=== PATIENT | male | born 1975 | race Caucasian/White ===

== ENCOUNTER → 2019-06-22 | Outpatient (CLI) | payer BC ==
--- NOTE | 2019-06-22 22:48 | MR ---
EXAMINATION TYPE: MR knee LT wo con DATE OF EXAM: 06/22/2019 COMPARISON: Outside left knee x-ray June 10, 2019. HISTORY: Left knee pain due to injury, Hx of past lt knee injury x 20 years ago TECHNIQUE: Multiplanar, multisequence images of the knee is performed without IV contrast. FINDINGS: MEDIAL MENISCUS: Anterior and posterior horns are intact without tear. LATERAL MENISCUS: Anterior and posterior horns are intact without tear. CRUCIATE LIGAMENTS: The anterior cruciate ligament is intact and unremarkable. Posterior cruciate lig ament is thickened with increased signal. COLLATERAL LIGAMENTS: The medial collateral ligament and lateral collateral ligament complex are inta ct and unremarkable. EXTENSOR MECHANISM: Visualized quadriceps and patellar tendons are intact. EFFUSION: Small to moderate size suprapatellar joint effusion. POPLITEAL CYST: No popliteal/bergeron cyst. TRICOMPARTMENT SPACES: Mild narrowing medial tibiofemoral and patellofemoral compartments. Minimal sp urring. CARTILAGE: Tricompartment articular cartilage fairly well preserved. BONE MARROW SIGNAL: No focal abnormal marrow signal is appreciated. OTHER: No additional significant abnormality is appreciated. IMPRESSION: 1. No meniscal tear is seen. 2. Injury to the PCL without full-thickness tear. 3. Mild tricompartment degenerative changes as detailed above. 4. Small to borderline moderate sized suprapatellar joint effusion.
== END | disposition home or self-care (01) ==
LOC: RADMRIMAIN 19:26
PROVIDERS: ATTEND Orthopaedic Surgery
DX: M17.12 Unilateral primary osteoarthritis, left knee (principal); S89.92XA Unspecified injury of left lower leg, initial encounter

== ENCOUNTER 2019-08-18 14:12 | Day surgery (SDC) | payer BC ==
[2019-08-13 15:04] VITALS: BMI 36.0
--- NOTE | 2019-08-17 09:48 | HP ---
HISTORY AND PHYSICAL CHIEF COMPLAINT: Left knee pain. 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 He continues to have anterior and medial soreness along with swelling and stiffness. He has increasing symptoms with squatting. He has tried an injection and medications with only partial temporary relief. He does have a history of previous left knee arthroscopy in 1997. PAST MEDICAL HISTORY: Significant for hypertension and renal stones. PAST SURGICAL HISTORY: Significant for left knee arthroscopy, lithotripsy and left hand surgery. CURRENT MEDICATIONS: Aleve. ALLERGIES: He denies drug allergies. FAMILY HISTORY: Significant for cancer and heart disease. SOCIAL HISTORY: Significant for social alcohol use. REVIEW OF SYSTEMS: Sixteen-point review of systems otherwise reviewed and is noncontributory. PHYSICAL EXAMINATION: On examination, the patient is approximately 6 feet tall, 269 pounds of endomorphic habitus. HEENT exam is nonfocal. Neck is supple. He has painless passive motion of left hip. Straight leg raise is negative. Active motion left knee -10 to 130 degrees of flexion. He has a mild effusion. He is tender about the medial and lateral joint line. Collaterals are stable Rachid's negative, Soco's elicits medial pain. His distal neurovascular exam appears intact in the left lower extremity. MRI report left knee shows irregularity involving the cartilage on the distal medial femoral condyle. There is also a question of a PCL sprain. IMPRESSION: 1. Internal derangement left knee with possible PCL sprain and medial femoral condyle chondral injury. 2. Obesity. RECOMMENDATIONS: I talked to the patient at length regarding his condition along with treatment options. At this point, he is having persistent pain and mechanical symptoms that limit him despite conservative measures. After thorough discussion, he opts to proceed with surgery. We will plan to proceed with left knee arthroscopy with possible medial femoral chondrectomy and possible microfracture in addition to possible PCL debridement. Risks and benefits were discussed at length in layman's terms. We will likely perform that as an outpatient procedure. MMODL / IJN: [id number] /
[~2019-08-18 14:12] MED LIST: DEXAMETHASONE SOD PHOSPHATE 10 MG/ML 1 ML VIAL IV ONE; LACTATED RINGERS 1,000 ML IV SCH; LIDOCAINE 1% 20 ML VIAL (10MG/ML) FOR IV START INTRADERMA PRN; ONDANSETRON 4 MG/2 ML VIAL IVP ONE; SCOPOLAMINE 1.5MG/72HR PATCH TRANSDERM ONE; ceFAZolin 3 GM in SODIUM CHLORIDE 0.9% 100 ML IVPB ONE
[2019-08-18] MEDS ORDERED: PROPOFOL 10 MG/ML 20 ML VIAL IV ONE (16:10)
[2019-08-18] MEDS ORDERED: SUCCINYLCHOLINE CHLORIDE VIAL 200 MG/10 ML VIAL IV ONE (16:10)
[2019-08-18] MEDS ORDERED: MIDAZOLAM 2 MG/2 ML VIAL ONE (16:10)
[2019-08-18] MEDS ORDERED: fentaNYL (PF) 50 MCG/ML 2 ML AMP ONE (16:10)
[2019-08-18] MEDS ORDERED: LACTATED RINGERS 1,000 ML IV ONE (16:41)
--- NOTE | 2019-08-18 17:05 | P.OP ---
Date of Procedure: 08/18/19 Preoperative Diagnosis: Left knee internal derangement Postoperative Diagnosis: Grade 3 chondral injury distal medial femoral condyle Procedure(s) Performed: Left knee arthroscopic medial femoral chondrectomy with microfracture medial femoral condyle Anesthesia: MADI Surgeon: Reji Babin Estimated Blood Loss (ml): 10 Pathology: none sent Condition: stable Disposition: PACU Indications for Procedure: The patient's a 43-year-old male who presents with persistent/progressive left knee pain and mechanical symptoms despite conservative measures. A discussion of the risks and benefits of operative intervention versus continued conservative measures was made with patient. He opted to proceed with surgery. Operative risks to include infection, neurovascular injury, development of blood clots, possible incomplete resolution of symptoms, possible worsening symptoms and need for subsequent procedures was discussed. Informed consent was obtained. Operative Findings: As below Description of Procedure: The patient was brought to the operating room, and after induction of general anesthesia examined the left knee. Collaterals were stable, Rachid was negative, and posterior drawer was negative. The left lower extremity was prepped and draped in a normal fashion. A lateral portal was made through a 5 mm vertical skin incision lateral to the patella tendon above the joint line. Diagnostic arthroscopy was performed. On inspection of the medial compartment, a grade 3 chondral injury was noted involving the central distal portion medial femoral condyle. There was a loose chondral flap to be back to stable base with a motorized shaver. Microfracture was performed utilizing a power pik reaching the subchondral surface down to the bone marrow elements. The medial meniscus was stable and intact.. On inspection of the notch, the anterior cruciate ligament appeared to be intact. The posterior cruciate ligament appeared to be intact. On inspection of the lateral compartment no significant meniscal or cartilage pathology was noted. On inspection of the patellofemoral articulation grade 2 chondral changes were noted diffusely.. The gutters were clear debris. The knee was then thoroughly irrigated. The portals were closed with Steri-Strips. A sterile dressing was applied in addition to a compression stocking. The patient was awoken from general anesthesia and transferred to recovery room in good condition. Blood loss was estimated at 10 mL. No complications were incurred.
[2019-08-18] MEDS ORDERED: HYDROmorphone 1 MG/ML 1 ML SYRINGE IVP ONE ×2 (17:25→17:43)
[2019-08-18 17:29] VITALS: TEMP 97.1
[2019-08-18 18:10] VITALS: RESP 18
[2019-08-18 18:14] VITALS: BP 124/78; PULSE 84
== END 2019-08-18 18:30 | disposition home or self-care (01) ==
LOC: OR 14:12
PROVIDERS: ATTEND Orthopaedic Surgery
DX: M94.8X6 Other specified disorders of cartilage, lower leg (principal); M23.92 Unspecified internal derangement of left knee; I10 Essential (primary) hypertension; E66.9 Obesity, unspecified; Z98.890 Other specified postprocedural states; Z87.442 Personal history of urinary calculi; Z86.69 Personal history of other diseases of the nervous system and sense organs; Z79.1 Long term (current) use of non-steroidal anti-inflammatories (NSAID); Z82.49 Family history of ischemic heart disease and other diseases of the circulatory system; Z68.34 Body mass index [BMI] 34.0-34.9, adult
CPT/HCPCS: 29879; J2250; J0330; J1100; J0690; J2405; J3010; J1170; J2704

== ENCOUNTER → 2020-10-10 | Outpatient (CLI) | payer BC ==
--- NOTE | 2020-10-11 07:20 | CT ---
EXAMINATION TYPE: CT chest wo con DATE OF EXAM: 10/10/2020 COMPARISON: None HISTORY: Family history of aortic aneurysm. Pt has no complaints at time of scan. CT DLP: 556.[address] of the chest was performed with lung and mediastinal window settings submitted. The la ck of contrast limits evaluation of the vascular, mediastinal and parenchymal structures including th e upper abdomen. LUNGS: The lungs are clear and free of infiltrate. No atelectasis. No pulmonary nodule or mass is de tected. No pleural effusion. No CT evidence of interstitial lung disease. MEDIASTINUM/NGUYEN: Thoracic aorta is of normal caliber with limited evaluation given lack of contrast . The heart is not enlarged. No evidence for mediastinal mass. No lymph nodes greater than 1cm. UPPER ABDOMEN: No significant abnormality is seen. OTHER: No significant other abnormality. IMPRESSION: 1. No distinct abnormality appreciated.
== END | disposition home or self-care (01) ==
LOC: RADCTMAIN 17:17
PROVIDERS: ATTEND Family Medicine
DX: Z13.6 Encounter for screening for cardiovascular disorders (principal); Z82.49 Family history of ischemic heart disease and other diseases of the circulatory system
CPT/HCPCS: 71250

== ENCOUNTER 2021-02-13 07:12 | Inpatient (IN) | payer BC ==
[2021-02-13] MEDS ORDERED: SODIUM CHLORIDE 0.9% 1,000 ML IV STA (07:35)
--- NOTE | 2021-02-13 07:43 | ED ---
General Adult HPI - General Chief complaint: Fever Stated complaint: Fever Time Seen by Provider: 02/13/21 07:23 Source: patient, RN notes reviewed, old records reviewed Mode of arrival: ambulatory Limitations: no limitations - History of Present Illness Initial comments: 45 yo male presenting for evaluation of fever. Fever has been present for the past 3 days. He did have coronavirus swab on Saturday which was 3 days ago. He had fever this weekend up to 104. He has no cough or URI symptoms. No sore throat. No dyspnea. No chest pain. No abdominal pain. He reports bilateral great toe pain and bilateral knee pain. He denies any injury. He denies previous radical history. - Related Data Home Medications Medication Instructions Recorded Confirmed Acetaminophen Tab [Tylenol Tab] 500 mg PO Q6HR PRN 02/13/21 02/13/21 Allergies Allergy/AdvReac Type Severity Reaction Status Date / Time No Known Allergies Allergy Verified 02/13/21 08:39 Review of Systems ROS Statement: Those systems with pertinent positive or pertinent negative responses have been documented in the HPI. ROS Other: All systems not noted in ROS Statement are negative. Past Medical History Past Medical History: No Reported History Additional Past Medical History / Comment(s): hx of bells palsey History of Any Multi-Drug Resistant Organisms: None Reported Past Surgical History: Orthopedic Surgery Additional Past Surgical History / Comment(s): L wrist Past Psychological History: No Psychological Hx Reported Smoking Status: Never smoker Past Alcohol Use History: Occasional Past Drug Use History: None Reported General Exam Limitations: no limitations General appearance: alert, in no apparent distress Head exam: Present: atraumatic, normocephalic Eye exam: Present: normal appearance, PERRL ENT exam: Present: normal oropharynx, mucous membranes dry Neck exam: Present: normal inspection. Absent: tenderness, meningismus Respiratory exam: Present: normal lung sounds bilaterally. Absent: respiratory distress, wheezes Cardiovascular Exam: Present: regular rate, normal rhythm GI/Abdominal exam: Present: soft. Absent: distended, tenderness Extremities exam: Present: normal inspection, full ROM (Full range of motion of both knees. ), normal capillary refill, other (Bilateral toes exam, there is no erythema, no induration, no rash.) Neurological exam: Present: alert, oriented X3, CN II-XII intact, motor sensory deficit Psychiatric exam: Present: normal affect, normal mood Skin exam: Present: warm, dry, intact. Absent: rash Course Vital Signs 02/13/21 02/13/21 02/13/21 07:19 08:00 09:09 Temperature 99.5 F 101.9 F H 99.9 F H Pulse Rate 118 H 98 Respiratory 18 18 Rate Blood Pressure 133/74 118/67 O2 Sat by Pulse 96 95 Oximetry Medical Decision Making - Medical Decision Making 45-year-old male presenting with high fever, T-max at home was 104. His main complaint is eye lateral to pain and bilateral knee pain. He denies injury. Denies cough or URI symptoms. Denies abdominal pain. Denies any other in fectious symptoms. No recent travel. No rash. No history of exposure to tick bite. Patient states that each day over the past 3 days his fever has increased. No exposure to any known viral illness. Coronavirus testing is negative. CBC is negative for leukocytosis, stable hemoglobin, normal el ectrolytes, negative urinalysis. Chest x-ray performed which is negative. The source of his fever is not identified. Will be admitted to Dr. Corbin who is aware patient with ID on consult for fever of unknown origin. Blood cultures are pending. - Lab Data Result diagrams: 02/13/21 07:37 02/13/21 07:37 Lab Results 02/13/21 02/13/21 02/13/21 Range/Units 07:37 07:37 07:37 WBC 5.4 (3.8-10.6) k/uL RBC 4.97 (4.30-5.90) m/uL Hgb 15.9 (13.0-17.5) gm/dL Hct 45.5 (39.0-53.0) % MCV 91.5 (80.0-100.0) fL MCH 32.1 (25.0-35.0) pg MCHC 35.0 (31.0-37.0) g/dL RDW 12.8 (11.5-15.5) % Plt Count 167 (150-450) k/uL MPV 7.7 Neutrophils % 73 % Lymphocytes % 17 % Monocytes % 6 % Eosinophils % 3 % Basophils % 0 % Neutrophils # 4.0 (1.3-7.7) k/uL Lymphocytes # 0.9 L (1.0-4.8) k/uL Monocytes # 0.3 (0-1.0) k/uL Eosinophils # 0.1 (0-0.7) k/uL Basophils # 0.0 (0-0.2) k/uL Sodium 137 (137-145) mmol/L Potassium 4.3 (3.5-5.1) mmol/L Chloride 103 (98-107) mmol/L Carbon Dioxide 22 (22-30) mmol/L Anion Gap 12 mmol/L BUN 15 (9-20) mg/dL Creatinine 0.89 (0.66-1.25) mg/dL Est GFR (CKD-EPI)AfAm >90 (>60 ml/min/1.73 sqM) Est GFR (CKD-EPI)NonAf >90 (>60 ml/min/1.73 sqM) Glucose 138 H (74-99) mg/dL Plasma Lactic Acid Norberto 0.9 (0.7-2.0) mmol/L Calcium 9.1 (8.4-10.2) mg/dL Total Bilirubin 0.8 (0.2-1.3) mg/dL AST 35 (17-59) U/L ALT 26 (4-49) U/L Alkaline Phosphatase 64 (38-126) U/L Total Protein 7.2 (6.3-8.2) g/dL Albumin 4.3 (3.5-5.0) g/dL Urine Color Urine Appearance (Clear) Urine pH (5.0-8.0) Ur Specific [place] (1.001-1.035) Urine Protein (Negative) Urine Glucose (UA) (Negative) Urine Ketones (Negative) Urine Blood (Negative) Urine Nitrite (Negative) Urine Bilirubin (Negative) Urine Urobilinogen (<2.0) mg/dL Ur Leukocyte Esterase (Negative) Urine RBC (0-5) /hpf Urine WBC (0-5) /hpf Ur Squamous Epith Cells (0-4) /hpf Hyaline Casts (0-2) /lpf Urine Mucus (None) /hpf Coronavirus (PCR) (Not Detectd) 02/13/21 02/13/21 Range/Units 07:37 07:49 WBC (3.8-10.6) k/uL RBC (4.30-5.90) m/uL Hgb (13.0-17.5) gm/dL Hct (39.0-53.0) % MCV (80.0-100.0) fL MCH (25.0-35.0) pg MCHC (31.0-37.0) g/dL RDW (11.5-15.5) % Plt Count (150-450) k/uL MPV Neutrophils % % Lymphocytes % % Monocytes % % Eosinophils % % Basophils % % Neutrophils # (1.3-7.7) k/uL Lymphocytes # (1.0-4.8) k/uL Monocytes # (0-1.0) k/uL Eosinophils # (0-0.7) k/uL Basophils # (0-0.2) k/uL Sodium (137-145) mmol/L Potassium (3.5-5.1) mmol/L Chloride (98-107) mmol/L Carbon Dioxide (22-30) mmol/L Anion Gap mmol/L BUN (9-20) mg/dL Creatinine (0.66-1.25) mg/dL Est GFR (CKD-EPI)AfAm (>60 ml/min/1.73 sqM) Est GFR (CKD-EPI)NonAf (>60 ml/min/1.73 sqM) Glucose (74-99) mg/dL Plasma Lactic Acid Norberto (0.7-2.0) mmol/L Calcium (8.4-10.2) mg/dL Total Bilirubin (0.2-1.3) mg/dL AST (17-59) U/L ALT (4-49) U/L Alkaline Phosphatase (38-126) U/L Total Protein (6.3-8.2) g/dL Albumin (3.5-5.0) g/dL Urine Color Yellow Urine Appearance Clear (Clear) Urine pH 6.0 (5.0-8.0) Ur Specific [place] 1.034 (1.001-1.035) Urine Protein 1+ H (Negative) Urine Glucose (UA) Negative (Negative) Urine Ketones Negative (Negative) Urine Blood Negative (Negative) Urine Nitrite Negative (Negative) Urine Bilirubin Negative (Negative) Urine Urobilinogen 3.0 (<2.0) mg/dL Ur Leukocyte Esterase Negative (Negative) Urine RBC <1 (0-5) /hpf Urine WBC 2 (0-5) /hpf Ur Squamous Epith Cells 1 (0-4) /hpf Hyaline Casts 1 (0-2) /lpf Urine Mucus Many H (None) /hpf Coronavirus (PCR) Not Detected (Not Detectd) Disposition Clinical Impression: Fever of unknown origin, Polyarthralgia Disposition: ADMITTED IP TO THIS HOSP Condition: Stable Is patient prescribed a controlled substance at d/c from ED?: No Referrals: Sanjeev Lezama DO [Primary Care Provider] - 1-2 days Decision to Admit Reason: Admit from EC Decision Date: 02/13/21 Decision Time: 09:43
[2021-02-13 07:50] LABS: Basophils % (A) 0 %; Eosinophils # (A) 0.1 k/uL (0-0.7); Eosinophils % (A) 3 %; HCT 45.5 % (39.0-53.0); HGB 15.9 gm/dL (13.0-17.5); Lymphocytes # (A) 0.9 k/uL (1.0-4.8); Lymphocytes % (A) 17 %; MCH 32.1 pg (25.0-35.0); MCV 91.5 fL (80.0-100.0); Mean Platelet Volume 7.7; Monocytes # (A) 0.3 k/uL (0-1.0); Monocytes % (A) 6 %; Neutrophils % (A) 73 %; Platelet Count 167 k/uL (150-450); RBC 4.97 m/uL (4.30-5.90); RDW 12.8 % (11.5-15.5); WBC 5.4 k/uL (3.8-10.6)
--- NOTE | 2021-02-13 07:53 | XR ---
EXAMINATION TYPE: XR chest 2V DATE OF EXAM: 02/13/2021 COMPARISON: None INDICATION: Fever TECHNIQUE: Frontal and lateral views of the chest are obtained. FINDINGS: The heart size is normal. The pulmonary vasculature is normal. The lungs are clear. IMPRESSION: 1. No acute pulmonary process.
[2021-02-13 07:58] LABS: Appearance,Urine Clear (Clear); Bilirubin,Urine Negative (Negative); Blood,Urine Negative (Negative); Color,Urine Yellow; Glucose,Urine (UA) Negative (Negative); Hyaline Casts,Urine 1 /lpf (0-2); Ketones,Urine Negative (Negative); Leukocyte Esterase,Urine Negative (Negative); Mucus,Urine Many /hpf; Nitrite,Urine Negative (Negative); Protein,Urine 1+ (Negative); RBC,Urine <1 /hpf (0-5); Specific Gravity,Urine 1.034 (1.001-1.035); Squamous Epithelial Cell,Urine 1 /hpf (0-4); WBC,Urine 2 /hpf (0-5)
[2021-02-13 08:07] LABS: ALT 26 U/L (4-49); AST 35 U/L (17-59); African American GFR (CKD) >90 (>60 ml/min/1.73 sqM); Albumin 4.3 g/dL (3.5-5.0); Alkaline Phosphatase 64 U/L (38-126); Anion Gap 12 mmol/L; Blood Urea Nitrogen 15 mg/dL (9-20); Calcium 9.1 mg/dL (8.4-10.2); Carbon Dioxide 22 mmol/L (22-30); Chloride 103 mmol/L (98-107); Glucose 138 mg/dL (74-99); Non-African American GFR(CKD) >90 (>60 ml/min/1.73 sqM); Potassium 4.3 mmol/L (3.5-5.1); Sodium 137 mmol/L (137-145); Total Bilirubin 0.8 mg/dL (0.2-1.3); Total Protein 7.2 g/dL (6.3-8.2)
[2021-02-13] MEDS ORDERED: ACETAMINOPHEN TAB 500 MG TAB PO STA (08:13)
[2021-02-13] MEDS ORDERED: IBUPROFEN 400 MG TAB PO PRN (09:40)
[2021-02-13] MEDS ORDERED: NALOXONE 0.4 MG/ML 1 ML VIAL IV PRN (09:40)
[2021-02-13] MEDS ORDERED: ACETAMINOPHEN TAB 325 MG TAB PO PRN (09:40)
[2021-02-13] MEDS: SODIUM CHLORIDE 0.9% 1,000 ML IV SCH ×2 (10:14→18:23)
--- NOTE | 2021-02-13 11:55 | XR ---
EXAMINATION TYPE: XR lumbar spine 2 or 3V DATE OF EXAM: 02/13/2021 COMPARISON: None HISTORY: Lumbar pain TECHNIQUE: 3 view lumbar spine FINDINGS: There are 5 lumbar-type vertebral bodies. The pedicles are intact. Disc heights are narrowe d at L4-5 and L5-S1. Some posterior disc space narrowing at L3-4 may be present. Vertebral body heigh ts are preserved. Mild spondylosis is present. IMPRESSION: 1. Mild degenerative disc changes through the lower lumbar spine, greatest at L5-S1.
[2021-02-13] MEDS: IOPAMIDOL CONTRAST (ORAL USE) VIAL PO PRN ×2 (12:36→13:26)
[2021-02-13 13:48] LABS: C Reactive Protein 5.5 mg/dL (<1.0); Uric Acid 4.7 mg/dL (3.5-8.5)
--- NOTE | 2021-02-13 14:47 | XR ---
EXAMINATION TYPE: XR knee complete bilateral DATE OF EXAM: 02/13/2021 COMPARISON: None HISTORY: Pain TECHNIQUE: 3 views each knee FINDINGS: Joint spaces are preserved. No acute fracture or dislocation is evident. There appears to be a moderate to large joint effusion within the right knee. Small to moderate joint effusion may be within the left knee. IMPRESSION: 1. Bilateral joint effusions, larger on the right. 2. No acute osseous abnormality.
--- NOTE | 2021-02-13 14:54 | P.HPIM ---
History of Present Illness H&P Date: 02/13/21 HISTORY OF PRESENT ILLNESS This is a 45-year-old male patient of Dr. Lezama with past medical history of Narayan's palsy, left knee arthroscopy. Patient states he had onset of back pain in the lumbar area and after that he developed a fever. Last night he had fever as well as knee pain bilaterally and bilateral toe pain. He denies having any nausea, vomiting or diarrhea since this started except for he had a little nausea last evening as well as bilateral knee stiffness and decreased range of motion. He has no headache, no blurred vision. He denies any rash, neck stiffness. [place] exposure. He denies any sick contacts and no recent travel. He also had Covid testing on Saturday which apparently was negative. Fever was up to 104F. Patient came into the [facility] emergency center for evaluati on and found to have temperature max of 101.9, heart rate 118, blood pressure 133/74, pulse ox 96% on room air. CBC was normal. Electrolytes and renal function normal. Blood sugar 138. Lactic acid 0.9. Liver function test normal.Coronavirus PCR not detected. Urinalysis negative for infection. Chest x-ray reveals no acute process. Patient admitted to the observation unit, lumbar spine x-rays, consults with Dr. Marquez and Dr. Babin ordered. Additionally, bilateral knee x-rays and CAT scan of the abdomen and pelvis ordered. Blood cultures are in process. REVIEW OF SYSTEMS Constitutional: Reports fever, Reports chills, no night sweats. No weight change. No weakness, Reports fatigue. No daytime sleepiness. EENT: No headache. No blurred vision or double vision, no loss of vision. No loss of Hearing, no ringing in the ears, no dizziness. No nasal drainage or congestion. No epistaxis. No sore throat. Lungs: No shortness of breath, cough, no sputum production. No wheezing. Cardiovascular: No chest pain, no lower extremity edema. No palpitations. No p aroxysmal nocturnal dyspnea. No orthopnea. No lightheadedness or dizziness. No syncopal episodes. Abdominal: No abdominal pain. No nausea, vomiting. No diarrhea. No constipation. No bloody or tarry stools.. No loss of appetite. Genitourinary: No dysuria, increased frequency, urgency. No urinary retention. Musculoskeletal: No myalgias. No muscle weakness, no gait dysfunction, no frequent falls. Reports back pain. No neck pain. Reports bilateral knee pain, bilateral foot pain. Integumentary: No wounds, no lesions. No rash or pruritus. No unusual bruising. No change in hair or nails. Neurologic: No aphasia. No facial droop. No change in mentation. No head injury. No headache. No paralysis. No paresthesia. Psychiatric: No depression. No anxiety. No mood swings. Endocrine: No abnormal blood sugars. No weight change. SOCIAL HISTORY Patient is a lifelong nonsmoker, occasional alcohol use, no illicit drug use. Patient lives at home with his . He works managing a construction company. FAMILY HISTORY Mother is alive in her 60s with no major medical problems. Father in his 30s most likely from myocardial infarction. Patient has one brother. No sisters. Patient has one son and daughter with no major medical problems. PHYSICAL EXAMINATION Gen: This is an obese 45-year-old male. He is resting on the ear structure that appears to be comfortable and in no acute distress. HEENT: Head is atraumatic, normocephalic. Pupils equal, round. Sclerae is anicteric. NECK: Supple. No JVD. No lymphadenopathy. No thyromegaly. LUNGS: Clear to auscultation. No wheezes or rhonchi. No intercostal retractions. HEART: Regular rate and rhythm. No murmur. ABDOMEN: Soft. Bowel sounds are present. No masses. No tenderness. EXTREMITIES: No pedal edema. No calf tenderness. Bilateral knee stiffness and decreased range of motion. NEUROLOGICAL: Patient is awake, alert and oriented x3. Cranial nerves 2 through 12 are grossly intact. ASSESSMENT AND PLAN 1. SIRS and fever of unknown etiology, rule out abdominal source, septic arthritis, pulmonary embolism, coronavirus illness. Consult with Dr. Marquez and orthopedics. CAT scan of the abdomen and pelvis, bilateral knee x-rays, blood cultures are in progress. Legionella, mycoplasma, pro-calcitonin, C-reactive protein, sed rate repeat coronavirus. 2. Elevated d-dimer, rule out PE. CAT scan angiogram of the chest ordered. 3. Obesity with BMI of 36. 4. GI prophylaxis. Protonix. 5. DVT prophylaxis. Heparin subcu. Patient will be admitted to the hospital for a minimum of 2 night stay. DISCHARGE PLAN home. Impression and plan of care have been directed as dictated by the signing physician. Seble Gilliland nurse practitioner acting as scribe for signing physic stephan. Past Medical History Past Medical History: No Reported History Additional Past Medical History / Comment(s): hx of bells palsey History of Any Multi-Drug Resistant Organisms: None Reported Past Surgical History: Orthopedic Surgery Additional Past Surgical History / Comment(s): L wrist Past Psychological History: No Psychological Hx Reported Smoking Status: Never smoker Past Alcohol Use History: Occasional Past Drug Use History: None Reported Medications and Allergies Home Medications Medication Instructions Recorded Confirmed Type Acetaminophen Tab [Tylenol Tab] 500 mg PO Q6HR PRN 02/13/21 02/13/21 History Allergies Allergy/AdvReac Type Severity Reaction Status Date / Time No Known Allergies Allergy Verified 02/13/21 08:39 Physical Exam Vitals: Vital Signs Temp Pulse Resp BP Pulse Ox 02/13/21 09:09 99.9 F H 98 18 118/67 95 02/13/21 08:00 101.9 F H 02/13/21 07:19 99.5 F 118 H 18 133/74 96 Intake and Output 02/12/21 02/13/21 02/13/21 22:59 06:59 14:59 Other: Voiding Method Toilet Weight 124.738 kg Results CBC & Chem 7: 02/13/21 07:37 02/13/21 07:37 Labs: Abnormal Lab Results - Last 24 Hours (Table) 02/13/21 02/13/21 02/13/21 Range/Units 07:37 07:37 07:37 Lymphocytes # 0.9 L (1.0-4.8) k/uL Glucose 138 H (74-99) mg/dL Urine Protein 1+ H (Negative) Urine Mucus Many H (None) /hpf
[2021-02-13 14:57] VITALS: RESP 16
[2021-02-13] MEDS ORDERED: HEPARIN SODIUM 1,000 UN/ML (10ML VL) IV PRN (15:33)
[2021-02-13] MEDS ORDERED: HEPARIN SODIUM 1,000 UN/ML (10ML VL) IV ONE (15:33)
[2021-02-13] MEDS ORDERED: HEPARIN SODIUM,PORCINE/PF 5,000 UNIT/0.5 ML SYRINGE SQ SCH (16:00)
[2021-02-13 16:27] LABS: Partial Thromboplastin Time 25.3 sec (22.0-30.0); Prothrombin Time 10.8 sec (9.0-12.0)
[2021-02-13 16:34] LABS: Basophils % (A) 1 %; Eosinophils # (A) 0.1 k/uL (0-0.7); Eosinophils % (A) 3 %; HCT 42.8 % (39.0-53.0); HGB 14.7 gm/dL (13.0-17.5); Lymphocytes # (A) 0.9 k/uL (1.0-4.8); Lymphocytes % (A) 23 %; MCH 31.9 pg (25.0-35.0); MCHC 34.2 g/dL (31.0-37.0); MCV 93.3 fL (80.0-100.0); Monocytes # (A) 0.3 k/uL (0-1.0); Monocytes % (A) 7 %; Neutrophils # (A) 2.5 k/uL (1.3-7.7); Neutrophils % (A) 64 %; Platelet Count 151 k/uL (150-450); RBC 4.59 m/uL (4.30-5.90); RDW 12.8 % (11.5-15.5); WBC 3.8 k/uL (3.8-10.6)
[2021-02-13] MEDS: HEPARIN SOD,PORK IN 0.45% NACL 25,000 UNIT in 0.45% NACL 1 250ML.BAG IV SCH (16:39)
--- NOTE | 2021-02-13 17:42 | CT ---
EXAMINATION TYPE: CT abdomen pelvis w con DATE OF EXAM: 02/13/2021 COMPARISON: NONE HISTORY: 45-year-old male Fever of unknown origin. TECHNIQUE: Contiguous axial scanning of the abdomen and pelvis following administration of 100 ml Iso estephania 300 IV contrast. Delayed images through the kidneys and coronal/sagittal reconstructions perform ed. CT DLP: 2229.1 mGycm Automated exposure control for dose reduction was used. FINDINGS: Heart normal size without pericardial effusion. Lung bases clear without pleural effusion. No focal liver lesion or biliary ductal dilatation. Portal venous system is patent. Gallbladder, adrenal glands, kidneys, and pancreas appear within normal limits. Mild circumferential wall thickening of the second and third portions of the duodenum, refer to coron al image 51. Splenomegaly at 15.6 cm. No dilated small bowel, free fluid, or free air. No mesenteric or retroperitoneal lymphadenopathy. Ci rcumaortic left renal vein incidentally noted. Normal appendix. No significant stool burden. Oral contrast progressed into the proximal sigmoid colo n. There is left-sided colonic diverticulosis, greatest in the proximal to mid sigmoid colon. Some pr ominent pericolonic vessels are present without any significant wall thickening or pericolonic inflam mation mildly redundant distal sigmoid colon. Moderate stool distending the rectum up to 5.8 cm. Prostate gland is borderline in size at 4.0 cm wit h central calcifications. Moderate circumferential bladder wall thickening. No abnormal fluid collection in the pelvis. Promine nt bilateral inguinal lymph nodes are borderline in size measuring up to 1.2 cm, probably reactive. Bones: Transitional lumbosacral segment again noted as a lumbarized S1. IMPRESSION: 1. MODERATE CIRCUMFERENTIAL BLADDER WALL THICKENING. CORRELATE TO EXCLUDE CYSTITIS. 2. MILD CIRCUMFERENTIAL WALL THICKENING OF THE SECOND AND THIRD PORTIONS OF THE DUODENUM COULD REPRES ENT A MILD REGIONAL ENTERITIS. 3. SPLENOMEGALY (15.6 CM). 4. LEFT-SIDED COLONIC DIVERTICULOSIS, GREATEST IN THE SIGMOID COLON. NO CONVINCING EVIDENCE FOR ACUTE DIVERTICULITIS. 5. SOME BORDERLINE SIZED BILATERAL INGUINAL LYMPH NODES MEASURING UP TO 1.3 CM, LIKELY REACTIVE. THES E CAN BE FOLLOWED CLINICALLY.
--- NOTE | 2021-02-13 17:59 | P.CNOR ---
History of Present Illness - [facility] Consult date: 02/13/21 History of present illness: Patient is a 45-year-old male who presented to [facility] early this morning for further evaluation of a fever that has been present for about 34 days. Patient had recently undergone a Coban test that was initially negative. Patient is having no other acute infectious signs/symptoms, this to include shortness of breath, nausea vomiting, diarrhea. Patient did complain of some generalized low back pain, also bilateral knee pain and right foot pain. Multiple lab tests were done on this patient, this did demonstrate an elevated sed rate at 33 and a CRP of 5.5. His d-dimer was also elevated. His white blood cell count was normal. Patient was admitted under internal medicine for further workup, R orthopedic team was consulted with regards to the knee pain and foot pain. Patient was evaluated on the med/surgical floor, he is resting comfortably in bed. His is present with him at bedside. Patient denies any recent trauma, this including falls. Patient denies any recent changes in activity, this including a workout regimen. Patient did state he found check on his lower left leg about 3 weeks ago. He states that he didn't think the take was buried, and he was able to remove it with ease. Patient was positive for COVID 19 back in May. He states that initially in the ER he did have some low back pain that tried to the right side. He does have a history of a previous kidney stone. The symptoms have subsided since being in the hospital. The left knee p ain has also improved since being in the hospital. He does note most of the discomfort in his right knee and right great toe. He does have a history of previous left knee arthroscopy with Dr. Babin, this was done a few years ago. He's had no other significant issues with that left knee since. Currently denying any headaches, lightheadedness, chest pain, shortness of breath, nausea vomiting, abdominal discomfort, upper extremity pain, left lower extremity pain. He denies any loss of bowel or bladder function. He denies any paresthesias of the bilateral upper or lower extremities. Review of Systems Constitutional: Reports as per HPI Past Medical History Past Medical History: No Reported History Additional Past Medical History / Comment(s): hx of bells palsey History of Any Multi-Drug Resistant Organisms: None Reported Past Surgical History: Orthopedic Surgery Additional Past Surgical History / Comment(s): L wrist Past Psychological History: No Psychological Hx Reported Smoking Status: Never smoker Past Alcohol Use History: Occasional Past Drug Use History: None Reported Medications and Allergies Home Medications Medication Instructions Recorded Confirmed Type Acetaminophen Tab [Tylenol Tab] 500 mg PO Q6HR PRN 02/13/21 02/13/21 History Allergies Allergy/AdvReac Type Severity Reaction Status Date / Time No Known Allergies Allergy Verified 02/13/21 08:39 Physical Examination Gen: AOx3, NAD VSS stable at this time Integument: No obvious open lesions or sores are visualized throughout the cervical, thoracic or lumbar spine There are no obvious open lesions, this including areas of erythema surrounding the right knee. There is a mild effusion present on the right knee No obvious open lesions or sores are present throughout the left lower extremity, this including areas of erythema No open sores or lesions or skin breakdown noted in the right foot, specifically over the great toe Palpation: Patient is nontender throughout the midline and paraspinal regions of the c ervical, thoracic, lumbar spine Tenderness with palpation of the greater toe on the right side, No remaining tenderness of the right foot/ankle. He does have some generalized tenderness over the right knee with range of motion, he has no medial lateral joint line tenderness. No tenderness with palpation of the left knee, lower leg, this to include foot and ankle ROM: Range of motion of all major muscle groups in the bilateral upper extremities are intact Range of motion of all major muscle groups in the bilateral lower extremities are intact, some discomfort over the anterior posterior aspect of the right knee with deep flexion Sensory Exam: Senory exam to light touch is intact C5-T1 Senosry exam to light touch is intact L2-S1 Motor: 55 strength is appreciated with shoulder abduction, forward elevation, elbow extension, elbow flexion, wrist extension, wrist flexion and finger intrinsics in the bilateral upper extremities 55 strength is appreciated with hip flexion, knee extension, knee flexion, plantar flexion, dorsiflexion, EHL, FHL and the bilateral lower extremities Special Test: Logg roll maneuver reproduces no pain bilaterally Negative straight leg raise bilaterally Results - Labs Labs: Abnormal Lab Results - Last 24 Hours (Table) 02/13/21 02/13/21 02/13/21 Range/Units 07:37 07:37 07:37 Lymphocytes # 0.9 L (1.0-4.8) k/uL ESR (0-15) mm/hr D-Dimer (<0.60) mg/L FEU Glucose 138 H (74-99) mg/dL Lactate Dehydrogenase (313-618) U/L C-Reactive Protein (<1.0) mg/dL Urine Protein 1+ H (Negative) Urine Mucus Many H (None) /hpf 02/13/21 02/13/21 02/13/21 Range/Units 12:45 12:45 12:45 Lymphocytes # (1.0-4.8) k/uL ESR 33 H (0-15) mm/hr D-Dimer 1.31 H (<0.60) mg/L FEU Glucose (74-99) mg/dL Lactate Dehydrogenase 621 H (313-618) U/L C-Reactive Protein 5.5 H (<1.0) mg/dL Urine Protein (Negative) Urine Mucus (None) /hpf 02/13/21 Range/Units 12:45 Lymphocytes # 0.9 L (1.0-4.8) k/uL ESR (0-15) mm/hr D-Dimer (<0.60) mg/L FEU Glucose (74-99) mg/dL Lactate Dehydrogenase (313-618) U/L C-Reactive Protein (<1.0) mg/dL Urine Protein (Negative) Urine Mucus (None) /hpf H & H 02/13/21 02/13/21 Range/Units 07:37 12:45 Hgb 15.9 14.7 (13.0-17.5) gm/dL Hct 45.5 42.8 (39.0-53.0) % Coagulation 02/13/21 Range/Units 12:45 INR 1.0 (<1.2) Result Diagrams: 02/13/21 12:45 02/13/21 07:37 - Diagnostic results Knee x-ray: report reviewed, image reviewed (X-rays are reviewed along with reports of the bilateral knees. Images demonstrated no acute fractures or dislocations. Reports noted mild effusion bilateral knees.) Lumbar AP/lateral x-ray: report reviewed, image reviewed (Reports and images reviewed of the lumbar spine. Images to demonstrate multilevel spondylosis, most severe at L4-L5. No acute fractures or other bony abnormalities) Assessment and Plan Assessment: Fever of unknown origin Elevated CRP and sed rate Elevated d-dimer Right knee pain Right knee effusion Right big toe pain Other medical comorbidities Plan: I was able to discuss the case, this including both physical exam findings and imaging studies my attending Dr. Yang. No emergent orthopedic surgical intervention recommended at this time Etiology of patient's symptoms are very difficult to determine at this time. The right great toe may be related to a crystalline arthropathy, same thing with the right knee. Taking into consideration the patient's lab and physical exam findings, we did recommend a aspiration of the right knee with possible steroid injection for symptomatic relief. Risk and benefits of the procedure were discussed patient, he is in good understanding and would like to proceed. Consent form was obtained, please see procedure note for further detail. After aspiration, proper lab tests were ordered and fluid was sent for analysis. This to include anaerobic culture, anaerobic culture, crystal analysis, fungal culture, cell count, Gram stain. Await results Pain control, Tylenol and anti-inflammatories as needed Weight-bear as tolerated GI and DVT prophylaxis per primary medical service At this time we will await results of the aspiration to help rule out a septic arthritis. The patient's clinical picture does not lean in that direction at this time. This may be more of an inflammatory arthropathy. Further recommendations to follow Time with Patient: Less than 30
--- NOTE | 2021-02-13 18:02 | P.PCN ---
Date of Procedure: 02/13/21 Preoperative Diagnosis: Right knee pain/right knee effusion Postoperative Diagnosis: Same Procedure(s) Performed: Right knee aspiration with intra-articular cortisone injection Anesthesia: local Surgeon: Aakash Chase Estimated Blood Loss (ml): 0 Condition: stable Disposition: no change Indications for Procedure: Right knee pain with rotation, rule out crystalline arthropathy versus septic arthritis versus inflammatory arthritis Description of Procedure: Risks and benefits of this procedure were discussed with the patient and his at bedside, he is in a grandson wanted to proceed. A proper consent form was obtained, a proper timeout was also done with the nursing staff in the room. Proper documentation was filled out and placed in the patient's chart. Patient was in the supine position, the knee was prepped with 1 iodine swabs and 1 alcohol swabs. A 20-gauge needle was first used to inject 3 mL of 1% plain lidocaine via the suprapatellar approach. After injection of the anesthetic, I then was able to aspirate about 8 mL of bloody serosanguineous fluid from the joint. There is no obvious purulence on exam. I was then able to switch the syringes, I then placed 1 mL of 1% plain lidocaine, 1 mL of quarter percent plain Marcaine and 40 mg Depo-Medrol into the right knee of via the suprapatellar approach. Patient tolerated the procedure well, a bandage was then placed. A new 20 mL syringe was then applied to the syringe. I then placed the joint fluid into a red top tube and green topped tube. A blue top culture swab was also provided. Proper patient identification was placed on these tubes, and then sent to the lab. Proper lab tests were ordered via the EMR system.
[2021-02-13 21:42] LABS: Appearance,BF Bloody; RBC, Body Fluid 194250 /uL
[2021-02-13 21:43] LABS: Nucleated Cells, Body Fluid 7000 /uL
[2021-02-13 21:45] LABS: Mononuclear WBC,Body Fluid 52 %; Polynuclear WBC,Body Fluid 48 %; Total Cells Counted,Body Fluid 100
--- NOTE | 2021-02-13 23:02 | P.CONS ---
History of Present Illness - Reason for Consult Consult date: 02/13/21 FUO Requesting physician: Wilbert Corbin - Chief Complaint Fever x 3 days - History of Present Illness History of present illness : Patient is a 45-year-old male presenting to the ER early this morning for evaluation of fever elevated going on for the last 3 days patient did have initially low-grade fever however this morning he woke up with temperature 104 degrees forearm height that concern the patient and he came to the ER, the patient denies having any rigors or chills, patient denies having any headache or URI symptoms no chest pain or shortness of breath or cough no nausea no abdominal pain no diarrhea has been vomiting no pain bilateral big toe area since the patient has came to the hospital as well as bilateral knee pain patient described the pain to be more of a dull aching to sharp intensity is about 5-6 out of 10 no radiation currently not have any swelling or redness with the symptoms the patient has been evaluated by the ER physician on arrival to the ER patient did have a fever of 101.9 F patient did have a normal white count with mild lymphopenia kidney function was normal liver enzymes are normal urine has been negative patient did have a chest x-ray that was negative for acute pulmonary process infectious disease was consulted for fever of unknown origin Review of system: Positive point has been mentioned in HPI rest of the systems are negative Past medical history : Reviewed see below Past surgical history : Reviewed see below Social history: Reviewed see below Medications: Reviewed see below GENERAL DESCRIPTION: Middle-aged male lying in bed, no distress. No tachypnea or accessory muscle of respiration use. HEENT: Shows Pallor , no scleral icterus. Oral mucous membrane is dry. NECK: Trachea central, no thyromegaly. LUNGS: Unlabored breathing. Clear to auscultation anteriorly. No wheeze or crackle. HEART: S1, S2, regular rate and rhythm. ABDOMEN: Soft, no tenderness , guarding or rigidity EXTREMITIES: No edema of feet. SKIN: No rash, no masses palpable. NEUROLOGICAL: The patient is awake, alert, oriented x3, mood and affect normal. LABS: Reviewed Assessment : 1-patient presented to hospital with a fever of 3 days duration and this patient currently do not have any localizing focus of infection with co ncern for possible viral etiology patient be complaining of some pain to bilateral big toe area knee area however the patient did not have any swelling redness or dislocation clinically not septic arthritis Plan: 1-we will obtain a CT of abdominal pelvis to complete the work-up 2-check CRP procalcitonin uric acid level and dunaway PCR 3-we will also check EBV and CMV serology 4-no need for systemic antibiotic therapy as clinical suspicion low for underlying bacterial infection We will follow on clinical condition and cultures to further adjust medication if needed Thank you for this consultation we will follow the patient along with you Past Medical History Past Medical History: No Reported History Additional Past Medical History / Comment(s): hx of bells palsey History of Any Multi-Drug Resistant Organisms: None Reported Past Surgical History: Orthopedic Surgery Additional Past Surgical History / Comment(s): L wrist Past Psychological History: No Psychological Hx Reported Smoking Status: Never smoker Past Alcohol Use History: Occasional Past Drug Use History: None Reported Medications and Allergies Home Medications Medication Instructions Recorded Confirmed Type Acetaminophen Tab [Tylenol Tab] 500 mg PO Q6HR PRN 02/13/21 02/13/21 History Allergies Allergy/AdvReac Type Severity Reaction Status Date / Time No Known Allergies Allergy Verified 02/13/21 08:39 Physical Exam Vitals: Vital Signs Temp Pulse Resp BP Pulse Ox 02/13/21 10:42 99.1 F 89 18 122/77 96 02/13/21 09:09 99.9 F H 98 18 118/67 95 02/13/21 08:00 101.9 F H 02/13/21 07:19 99.5 F 118 H 18 133/74 96 Intake and Output 02/12/21 02/13/21 02/13/21 22:59 06:59 14:59 Other: Voiding Method Toilet Weight 124.738 kg Results CBC & Chem 7: 02/13/21 12:45 02/13/21 07:37 Labs: Abnormal Lab Results - Last 24 Hours (Table) 02/13/21 02/13/21 02/13/21 Range/Units 07:37 07:37 07:37 Lymphocytes # 0.9 L (1.0-4.8) k/uL Glucose 138 H (74-99) mg/dL Urine Protein 1+ H (Negative) Urine Mucus Many H (None) /hpf
[2021-02-14] MEDS: SODIUM CHLORIDE 0.9% 1,000 ML IV SCH ×3 (00:41→21:46)
[2021-02-14] MEDS: HEPARIN SOD,PORK IN 0.45% NACL 25,000 UNIT in 0.45% NACL 1 250ML.BAG IV SCH ×2 (03:39→21:45)
[2021-02-14] MEDS: PANTOPRAZOLE 40 MG TABLET PO SCH (08:57)
--- NOTE | 2021-02-14 09:34 | P.PN ---
Subjective Progress Note Date: 02/14/21 Principal diagnosis: Right knee pain, right great toe pain, fever of unknown etiology Patient was examined today bedside, he is resting comfortably. He notes improvement with regards to the symptoms in the right knee. His right big toe is also feeling a lot better today. He was able to ambulate with minimal difficulty. Currently denying any headaches, lightheadedness, chest pain or shortness of breath. Objective - Vital Signs Vital signs: Vital Signs Temp 98.4 F 02/14/21 07:00 Pulse 83 02/14/21 07:00 Resp 16 02/14/21 07:00 BP 124/73 02/14/21 07:00 Pulse Ox 95 02/14/21 07:00 Intake & Output 02/13/21 02/14/21 02/14/21 18:59 06:59 18:59 Intake Total 660 1739.624 Balance 660 1739.624 Weight 124.738 kg Intake: Intake, IV Titration 260 1739.624 Amount Heparin Sod,Pork in 0.45% 179.624 NaCl 25,000 unit In 0.45 % NaCl 1 250ml.bag @ 18 UNITS/KG/HR 22.453 mls/hr IV .[id number] NATALIE Rx#: [id number] Sodium Chloride 0.9% 1, 260 1560 000 ml @ 130 mls/hr IV . [id number] NATALIE Rx#:[id number] Oral 400 Other: Voiding Method Toilet Toilet # Voids 1 3 - Exam Right knee: No erythema, open lesions or areas of soft tissue swelling Passive and active motion are significantly improved, is able to flex past 90 no difficulty, has full extension No significant tenderness with palpation surrounding the right knee Soft is soft, no tenderness with palpation Plantar flexion, dorsiflexion, EHL, FHL are intact Dorsalis pedis pulse and posterior tibialis pulse are both 2+, sensory exam to light touch is intact throughout the extremity No obvious skin changes are present throughout the right great toe, he has minimal tenderness with palpation - Labs CBC & Chem 7: 02/13/21 12:45 02/13/21 07:37 Labs: Abnormal Lab Results - Last 24 Hours (Table) 02/13/21 02/13/21 02/13/21 Range/Units 12:45 12:45 12:45 Lymphocytes # (1.0-4.8) k/uL ESR 33 H (0-15) mm/hr APTT (22.0-30.0) sec D-Dimer 1.31 H (<0.60) mg/L FEU Lactate Dehydrogenase 621 H (313-618) U/L C-Reactive Protein 5.5 H (<1.0) mg/dL Procalcitonin (0.02-0.09) ng/mL 02/13/21 02/13/21 02/13/21 Range/Units 12:45 12:45 21:48 Lymphocytes # 0.9 L (1.0-4.8) k/uL ESR (0-15) mm/hr APTT 147.2 H* (22.0-30.0) sec D-Dimer (<0.60) mg/L FEU Lactate Dehydrogenase (313-618) U/L C-Reactive Protein (<1.0) mg/dL Procalcitonin 0.13 H (0.02-0.09) ng/mL 02/14/21 Range/Units 06:06 Lymphocytes # (1.0-4.8) k/uL ESR (0-15) mm/hr APTT 61.6 H (22.0-30.0) sec D-Dimer (<0.60) mg/L FEU Lactate Dehydrogenase (313-618) U/L C-Reactive Protein (<1.0) mg/dL Procalcitonin (0.02-0.09) ng/mL Microbiology - Last 24 Hours (Table) 02/13/21 17:23 Anaerobic Culture - Preliminary Knee - Right 02/13/21 17:23 Fungal Culture - Preliminary Knee - Right 02/13/21 17:23 Wound Culture - Preliminary Knee - Right Assessment and Plan Assessment: Fever of unknown origin Elevated CRP and sed rate Elevated d-dimer Right knee pain Right knee effusion Right big toe pain Other medical comorbidities Plan: No orthopedic surgical intervention recommended at this time Initial cell count results demonstrated no acute findings for septic arthritis Pain control, Tylenol and anti-inflammatories as needed Weight-bear as tolerated GI and DVT prophylaxis per primary medical service Awaiting crystal analysis of joint fluid along with cultures. We'll continue to monitor lab results Time with Patient: Less than 30
[2021-02-14 09:40] LABS: HCT 44.3 % (39.6-50.0); HGB 14.4 g/dL (13.0-17.0); MCH 30.3 pg (27.0-32.0); MCHC 32.5 g/dL (32.0-37.0); MCV 93.1 fL (80.0-97.0); Platelet Count 164 X 10*3/uL (140-440); RBC 4.76 X 10*6/uL (4.40-5.60); WBC 3.08 X 10*3/uL (4.50-10.00)
[2021-02-14 10:23] LABS: Basophils # (A) 0.01 X 10*3/uL (0.00-0.10); Basophils % (A) 0.3 %; Eosinophils # (A) 0.01 X 10*3/uL (0.04-0.35); Eosinophils % (A) 0.3 %; Lymphocytes # (A) 0.59 X 10*3/uL (0.90-5.00); Lymphocytes % (A) 19.2 %; Monocytes # (A) 0.09 X 10*3/uL (0.20-1.00); Monocytes % (A) 2.9 %; Neutrophils # (A) 2.37 X 10*3/uL (1.80-7.70)
[2021-02-14 10:42] LABS: African American GFR (CKD) >90 (>60 ml/min/1.73 sqM); Anion Gap 11 mmol/L; Blood Urea Nitrogen 13 mg/dL (9-20); Calcium 8.7 mg/dL (8.4-10.2); Carbon Dioxide 21 mmol/L (22-30); Chloride 106 mmol/L (98-107); Glucose 160 mg/dL (74-99); Non-African American GFR(CKD) >90 (>60 ml/min/1.73 sqM); Potassium 4.6 mmol/L (3.5-5.1); Sodium 138 mmol/L (137-145)
[2021-02-14 11:23] VITALS: BMI 36.8
--- NOTE | 2021-02-14 12:54 | P.PN ---
Subjective Progress Note Date: 02/14/21 Principal diagnosis: HISTORY OF PRESENT ILLNESS This is a 45-year-old male patient of Dr. Lezama with past medical history of Narayan's palsy, left knee arthroscopy. Patient states he had onset of back pain in the lumbar area and after that he developed a fever. Last night he had fever as well as knee pain bilaterally and bilateral toe pain. He denies having any nausea, vomiting or diarrhea since this started except for he had a little nausea last evening as well as bilateral knee stiffness and decreased range of motion. He has no headache, no blurred vision. He denies any rash, neck stiffness. [place] tick exposure. He denies any sick contacts and no recent travel. He also had Covid testing on riday which apparently was negative. Fever was up to 104F. Patient came into the [facility] emergency center for evaluation and found to have temperature max of 101.9, heart rate 118, blood pressure 133/74, pulse ox 96% on room air. CBC was normal. Electrolytes and renal function normal. Blood sugar 138. Lactic acid 0.9. Liver function test normal.Coronavirus PCR not detected. Urinalysis negative for infection. Chest x-ray reveals no acute process. Patient admitted to the observation unit, lumbar spine x-rays, consults with Dr. Marquez and Dr. Babin ordered. Additionally, bilateral knee x-rays and CAT scan of the abdomen and pelvis ordered. Blood cultures are in process. 02/14: Patient seen and followed by orthopedics status post right knee aspiration and patient is cleared to weight bear as tolerated. CAT scan of the abdomen and pelvis revealed moderate circumferential bladder wall thickening correlate to exclude cystitis. Mild circumferential wall thickening of the second and third portions of the duodenum could represent a mild regional enteritis. Splen omegaly at 15.6 cm. Left-sided colonic diverticulosis. Borderline sized bilateral inguinal lymph nodes likely reactive. Lumbar spine x-rays reveal mild degenerative disc changes to the lumbar spine greatest at L5-S1. Bilateral x-ray of the knees revealed bilateral joint effusions larger on the right. No acute osseous abnormality. The following have been ordered by Dr. Marquez in pending, Nay-Kelly, Dheeraj virus, also pending mycoplasma. Wound culture is in process. Blood cultures showing no growth at 24 hours 2 specimens. Patient is scheduled for CTA of the chest to rule out pulmonary embolism this afternoon. Patient states that he is feeling much better from yesterday. He has less pain in his knees and toes. He denies having any fever. He has been afebrile, heart rate 83, blood pressure 124/73, pulse ox 95% on room air. Legionella is negative. Pro-calcitonin 0.13. Antic ipate probable discharge home tomorrow. REVIEW OF SYSTEMS Constitutional: Reports fever, Reports chills, no night sweats. No weight change. No weakness, Reports fatigue. No daytime sleepiness. EENT: No headache. No blurred vision or double vision, no loss of vision. No loss of Hearing, no ringing in the ears, no dizziness. No nasal drainage or congestion. No epistaxis. No sore throat. Lungs: No shortness of breath, cough, no sputum production. No wheezing. Cardiovascular: No chest pain, no lower extremity edema. No palpitations. No paroxysmal nocturnal dyspnea. No orthopnea. No lightheadedness or dizziness. No syncopal episodes. Abdominal: No abdominal pain. No nausea, vomiting. No diarrhea. No constipation. No bloody or tarry stools.. No loss of appetite. Genitourinary: No dysuria, increased frequency, urgency. No urinary retention. Musculoskeletal: No myalgias. No muscle weakness, no gait dysfunction, no frequent falls. Reports back pain. No neck pain. Reports bilateral knee pain improved, bilateral foot pain, improved. Integumentary: No wounds, no lesions. No rash or pruritus. No unusual bruising. No change in hair or nails. Neurologic: No aphasia. No facial droop. No change in mentation. No head injury. No headache. No paralysis. No paresthesia. Psychiatric: No depression. No anxiety. No mood swings. Endocrine: No abnormal blood sugars. No weight change. PHYSICAL EXAMINATION Gen: This is an obese 45-year-old male. He is resting on the ear structure that appears to be comfortable and in no acute distress. HEENT: Head is atraumatic, normocephalic. Pupils equal, round. Sclerae is anicteric. NECK: Supple. No JVD. No lymphadenopathy. No thyromegaly. LUNGS: Clear to auscultation. No wheezes or rhonchi. No intercostal retractions. HEART: Regular rate and rhythm. No murmur. ABDOMEN: Soft. Bowel sounds are present. No masses. No tenderness. EXTREMITIES: No pedal edema. No calf tenderness. Bilateral knee stiffness and decreased range of motion. NEUROLOGICAL: Patient is awake, alert and oriented x3. Cranial nerves 2 through 12 are grossly intact. ASSESSMENT AND PLAN 1. SIRS and fever of unknown etiology, possible enteritis, pulmonary embolism. Consult with Dr. Marquez and orthopedics. Blood cultures showing no growth, fluid culture in process Nay-Kelly virus, mycoplasma Septic arthritis and coronavirus ruled out. 2. Elevated d-dimer, rule out PE. CAT scan angiogram of the chest ordered scheduled for this afternoon. 3. Obesity with BMI of 36. 4. Right knee effusion status post aspiration. GI prophylaxis. Protonix. 5. DVT prophylaxis. Heparin subcu. DISCHARGE PLAN home. Impression and plan of care have been directed as dictated by the signing physician. Seble Gilliland nurse practitioner acting as scribe for signing physician. Objective - Vital Signs Vital signs: Vital Signs Temp 98.4 F 02/14/21 07:00 Pulse 83 02/14/21 07:00 Resp 16 02/14/21 07:00 BP 124/73 02/14/21 07:00 Pulse Ox 95 02/14/21 07:00 Intake & Output 02/13/21 02/14/21 02/14/21 18:59 06:59 18:59 Intake Total 660 1739.624 Balance 660 1739.624 Weight 124.738 kg Intake: Intake, IV Titration 260 1739.624 Amount Heparin Sod,Pork in 0.45% 179.624 NaCl 25,000 unit In 0.45 % NaCl 1 250ml.bag @ 18 UNITS/KG/HR 22.453 mls/hr IV .[id number] NATALIE Rx#: [id number] Sodium Chloride 0.9% 1, 260 1560 000 ml @ 130 mls/hr IV . Q7H42M NATALIE Rx#:[id number] Oral 400 Other: Voiding Method Toilet Toilet # Voids 1 3 - Labs CBC & Chem 7: 02/14/21 06:06 02/14/21 06:06 Labs: Abnormal Lab Results - Last 24 Hours (Table) 02/13/21 02/13/21 02/13/21 Range/Units 12:45 12:45 12:45 Lymphocytes # (1.0-4.8) k/uL ESR 33 H (0-15) mm/hr APTT (22.0-30.0) sec D-Dimer 1.31 H (<0.60) mg/L FEU Lactate Dehydrogenase 621 H (313-618) U/L C-Reactive Protein 5.5 H (<1.0) mg/dL Procalcitonin (0.02-0.09) ng/mL 02/13/21 02/13/21 02/13/21 Range/Units 12:45 12:45 21:48 Lymphocytes # 0.9 L (1.0-4.8) k/uL ESR (0-15) mm/hr APTT 147.2 H* (22.0-30.0) sec D-Dimer (<0.60) mg/L FEU Lactate Dehydrogenase (313-618) U/L C-Reactive Protein (<1.0) mg/dL Procalcitonin 0.13 H (0.02-0.09) ng/mL 02/14/21 Range/Units 06:06 Lymphocytes # (1.0-4.8) k/uL ESR (0-15) mm/hr APTT 61.6 H (22.0-30.0) sec D-Dimer (<0.60) mg/L FEU Lactate Dehydrogenase (313-618) U/L C-Reactive Protein (<1.0) mg/dL Procalcitonin (0.02-0.09) ng/mL Microbiology - Last 24 Hours (Table) 02/13/21 17:23 Anaerobic Culture - Preliminary Knee - Right 02/13/21 17:23 Fungal Culture - Preliminary Knee - Right 02/13/21 17:23 Wound Culture - Preliminary Knee - Right
--- NOTE | 2021-02-14 14:25 | CT ---
CT CHEST FOR PULMONARY EMBOLISM. EXAMINATION TYPE: CT angio chest DATE OF EXAM: 02/14/2021 INDICATION: elevated d-dimer CT DLP: 659 mGycm, Automated exposure control for dose reduction was used. CONTRAST: Patient injected with 67cc mL of Isovue 370. COMPARISON: 10/10/2020 TECHNIQUE: CT of the chest is performed on a spiral scan at 2 mm thick sections. Study is performed with intravenous contrast timed for evaluation for pulmonary embolism. This will limit additional po rtions of the evaluation. 3-D MIP images reconstructed by the technologist are reviewed on the compu ter in the coronal and sagittal planes. FINDINGS: No persistent filling defects are evident to suggest an acute pulmonary embolism. No mediastinal or hilar adenopathy enlarged by CT criteria is evident. The ascending aorta diameter at the level of the main pulmonary artery is 2.8 cm. The main pulmonary artery diameter at the bifur cation is 2.5 cm. Lung windows are clear. Limited CT section through the upper abdomen are unremarkable. IMPRESSIONS: 1. No acute pulmonary embolism
[2021-02-14 16:50] LABS: EBV-EA (IgG) 1.2 AI; EBV-EBNA(IgG) >8.0 AI; EBV-VCA (IgG) >8.0 AI; EBV-VCA (IgM) <0.2 AI
--- NOTE | 2021-02-14 23:43 | PN ---
PROGRESS NOTE DATE OF SERVICE: 02/14/2021 REASON FOR FOLLOWUP: Fever, possible viral syndrome. INTERVAL HISTORY: Patient's overall fever pattern has improved and the patient is feeling better. Breathing comfortably. No chest pain, shortness of breath or cough. No abdominal pain. Pain to the hand and bilateral has decreased intensity. PHYSICAL EXAMINATION: Blood pressure 107/69, pulse of 73, temperature 98. He is 97% on room air. General description is a middle-aged male lying in bed in no distress. Respiratory system: Unlabored breathing, clear to auscultation anteriorly. Heart S1, S2. Regular rate. Abdomen is soft, no tenderness. Extremities no edema of the feet. LABS: Hemoglobin is 14.4, white count 13.08. DIAGNOSTIC IMPRESSION AND PLAN: Patient with fever concerning for possible viral syndrome and this patient does not have any obvious focus of infection . The patient's fever has resolved without any antibiotic therapy. We will continue to monitor the patient closely for antibiotics and continue supportive care. MMODL / IJN: [id number] /
[2021-02-15] MEDS: SODIUM CHLORIDE 0.9% 1,000 ML IV SCH (01:40)
[2021-02-15] MEDS: HEPARIN SOD,PORK IN 0.45% NACL 25,000 UNIT in 0.45% NACL 1 250ML.BAG IV SCH (01:42)
[2021-02-15] MEDS ORDERED: diphenhydrAMINE 25 MG CAP PO PRN (04:28)
[2021-02-15 05:43] LABS: Mycoplasma IgG Antibody (EIA) 1.89 INDEX (<=0.90); Mycoplasma IgM Antibody 0.66 INDEX (<=0.90)
[2021-02-15 08:02] VITALS: BP 105/69; PULSE 77; TEMP 97.8
[2021-02-15] MEDS: PANTOPRAZOLE 40 MG TABLET PO SCH (08:11)
--- NOTE | 2021-02-15 09:25 | P.DS ---
Providers Date of admission: 02/13/21 14:53 Expected date of discharge: 02/15/21 Attending physician: Wilbert Corbin Consults: 02/13/21 09:40 Consult Physician Routine Consulting Provider: Randal Marquez Consult Reason/Comments: Fever of unknown origin, polyarthralgia Do you want consulting provider notified?: Yes 02/13/21 09:42 Consult Physician Routine Consulting Provider: Reji Babin Consult Reason/Comments: bilat knee pain, fever Do you want consulting provider notified?: Yes Primary care physician: Sanjeev BertrandTeja [facility] Course: HISTORY OF PRESENT ILLNESS This is a 45-year-old male patient of Dr. Lezama with past medical history of Narayan's palsy, left knee arthroscopy. Patient states he had onset of back pain in the lumbar area and after that he developed a fever. Last night he had fever as well as knee pain bilaterally and bilateral toe pain. He denies having any nausea, vomiting or diarrhea since this started except for he had a little nausea last evening as well as bilateral knee stiffness and decreased range of motion. He has no headache, no blurred vision. He denies any rash, neck stiffness. [place] tick exposure. He denies any sick contacts and no recent travel. He also had Covid testing on Saturday which apparently was negative. Fever was up to 104F. Patient came into the [facility] emergency center for evaluation and found to have temperature max of 101.9, heart rate 118, blood pressure 133/74, pulse ox 96% on room air. CBC was normal. Electrolytes and renal function normal. Blood sugar 138. Lactic acid 0.9. Liver function test normal.Coronavirus PCR not detected. Urinalysis negative for infection. Chest x-ray reveals no acute process. Patient admitted to the observation unit, lumbar spine x-rays, consults with Dr. Marquez and Dr. Babin ordered. Additionally, bilateral knee x-rays and CAT scan of the abdomen and pelvis ordered. Blood cultures are in process. 02/14: Patient seen and followed by orthopedics status post right knee aspiration and patient is cleared to weight bear as tolerated. CAT scan of the abdomen and pelvis revealed moderate circumferential bladder wall thickening correlate to exclude cystitis. Mild circumferential wall thickening of the second and third portions of the duodenum could represent a mild regional enteritis. Splenomegaly at 15.6 cm. Left-sided colonic diverticulosis. Borderline sized bilateral inguinal lymph nodes likely reactive. Lumbar spine x-rays reveal mild degenerative disc changes to the lumbar spine greatest at L5-S1. Bilateral x-ray of the knees revealed bilateral joint effusions larger on the right. No acute osseous abnormality. The following have been ordered by Dr. Marquez in pending, Nay-Kelly, Dheeraj virus, also pending mycoplasma. Wound culture is in process. Blood cultures showing no growth at 24 hours 2 specimens. Patient is scheduled for CTA of the chest to rule out pulmonary embolism this afternoon. Patient states that he is feeling much better from yesterday. He has less pain in his knees and toes. He denies having any fever. He has been afebrile, heart rate 83, blood pressure 124/73, pulse ox 95% on room air. Legionella is negative. Pro-calcitonin 0.13. Anticipate probable discharge home tomorrow. 02/15: CTA of the chest was negative and heparin drip will be discontinued this morning. CMV IgG antibody came back reactive. Nay-Kelly virus appears to be positive for IgG and negative for IgM. Stool for occult blood was negative. Patient complains of a rash to the anterior and lateral chest abdomen and lower abdomen areas and was started on Benadryl. Patient remains afebrile, heart rate 77, blood pressure 105/69, pulse ox 96% on room air. Patient will be discharged home today in stable condition. Patient to continue symptomatic treatment only. No antibiotics are required. ASSESSMENT AND PLAN 1. SIRS and fever of unknown etiology, possible enteritis ruled out, symptoms secondary to Acute cytomegalovirus 2. Elevated d-dimer, ruled out PE. 3. Obesity with BMI of 36. 4. Right knee effusion status post aspiration. Septic arthritis ruled out. DISCHARGE PLAN home. Impression and plan of care have been directed as dictated by the signing physician. Seble Gilliland nurse practitioner acting as scribe for signing physician. Patient Condition at Discharge: Stable Plan - Discharge Summary New Discharge Prescriptions: New diphenhydrAMINE [Benadryl] 25 mg PO Q6HR PRN cap PRN Reason: Mild Itching Continue Acetaminophen Tab [Tylenol] 500 mg PO Q6HR PRN PRN Reason: Pain Or Fever > 100.5 Discharge Medication List Acetaminophen Tab [Tylenol] 500 mg PO Q6HR PRN 02/13/21 [History] diphenhydrAMINE [Benadryl] 25 mg PO Q6HR PRN cap 02/15/21 [Rx] Follow up Appointment(s)/Referral(s): Sanjeev Lezama DO [Primary Care Provider] - 03/28/21 10:30 am Patient Instructions/Handouts: Sepsis (GEN), Swollen Knee Joint (GEN) Discharge Disposition: HOME SELF-CARE
== END 2021-02-15 10:00 | disposition home or self-care (01) | DRG 866 ==
LOC: EC 07:12 → 6NMEDSUR 10:02 → OBSVTOIN 14:53
PROVIDERS: ADMIT Internal Medicine Geriatric Medicine; ATTEND Internal Medicine Geriatric Medicine
PROC: 0S9C3ZZ Drainage of Right Knee Joint, Percutaneous Approach (ICD-10-PCS; principal; 2021-02-13)
PROC: 3E0U33Z Introduction of Anti-inflammatory into Joints, Percutaneous Approach (ICD-10-PCS; 2021-02-13)
DX: B25.9 Cytomegaloviral disease, unspecified (principal); R65.10 Systemic inflammatory response syndrome (SIRS) of non-infectious origin without acute organ dysfunction; M79.675 Pain in left toe(s); M79.674 Pain in right toe(s); M25.562 Pain in left knee; M25.561 Pain in right knee; Z68.36 Body mass index [BMI] 36.0-36.9, adult; E66.9 Obesity, unspecified; M51.37 Other intervertebral disc degeneration, lumbosacral region; M51.36 Other intervertebral disc degeneration, lumbar region; Z20.822 Contact with and (suspected) exposure to COVID-19; K57.30 Diverticulosis of large intestine without perforation or abscess without bleeding; R21 Rash and other nonspecific skin eruption; Z86.16 Personal history of COVID-19; Z87.442 Personal history of urinary calculi; Z82.49 Family history of ischemic heart disease and other diseases of the circulatory system
CPT/HCPCS: 36415; 71046; 71275; 72100; 74177; 80048; 80053; 81001; 82272; 83605; 83615; 84145; 84550; 85025; 85379; 85610; 85652; 85730; 86140; 86644; 86645; 86663; 86664; 86665; 86738; 87040; 87070; 87075; 87102; 87205; 87449; 87635; 89050; 89060; 96360; 99284

== ENCOUNTER → 2021-07-26 | Outpatient (CLI) | payer BC ==
--- NOTE | 2021-07-26 11:08 | US ---
EXAMINATION TYPE: US carotid duplex BILAT DATE OF EXAM: 07/26/2021 COMPARISON: NONE CLINICAL HISTORY: syncope and collapse. EXAM MEASUREMENTS: RIGHT: Peak Systolic Velocity (PSV) cm/sec ----- Right CCA: 87.1 ----- Right ICA: 71.8 ----- Right ECA: 95.4 ICA/CCA ratio: 0.8 RIGHT: End Diastole cm/sec ----- Right CCA: 25.3 ----- Right ICA: 30.8 ----- Right ECA: 15.4 LEFT: Peak Systolic Velocity (PSV) cm/sec ----- Left CCA: 82.3 ----- Left ICA: 68.2 ----- Left ECA: 105.0 ICA/CCA ratio: 0.8 LEFT: End Diastole cm/sec ----- Left CCA: 27.6 ----- Left ICA: 26.8 ----- Left ECA: 15.7 VERTEBRALS (direction of flow): Right Vertebral: Antegrade Left Vertebral: Antegrade Rhythm: Normal No significant stenosis IMPRESSION: 1. No significant flow-limiting stenosis. Criteria for Assigning % of Stenosis / Diameter reduction (Estimation based on the indirect measurements of the internal carotid artery velocities (ICA PSV). 1. Normal (no stenosis)=ICA PSV < 125 cm/s: ratio < 2.0: ICA EDV<40 cm/s. 2. Less than 50% stenosis=ICA PSV < 125 cm/s: ratio < 2.0: ICA EDV<40 cm/s. 3. 50 to 69% stenosis=ICA PSV of 125 to 230 cm/s: ration 2.0 ? 4.0: ICA EDV 40-100 cm/s. 4. Greater than 70% stenosis to near occlusion= ICA PSV > 230 cm/s: ratio > 4.0: ICA EDV > 100 cm/s. 5. Near occlusion= ICA PSV velocities may be low or undetectable: variable ratio and ICA EDV. 6. Total occlusion=unable to detect flow.
--- NOTE | 2021-07-26 12:00 | ECHOF ---
Referral Reason:R55 Syncope and collapse MEASUREMENTS -------- HEIGHT: 193.0 cm WEIGHT: 120.2 kg BP: RVIDd: 3.7 cm (< 3.3) IVSd: 1.2 cm (0.6 - 1.1) LVIDd: 4.3 cm (3.9 - 5.3) LVPWd: 1.2 cm (0.6 - 1.1) IVSs: 1.9 cm LVIDs: 2.5 cm LVPWs: 1.7 cm LAESV Index (A-L): 15.25 ml/m Ao Diam: 2.8 cm (2.0 - 3.7) AV Cusp: 2.2 cm (1.5 - 2.6) LA Diam: 3.6 cm (2.7 - 3.8) MV EXCURSION: 20.824 mm (> 18.000) MV EF SLOPE: 89 mm/s (70 - 150) EPSS: 1.2 cm MV E Junior: 0.58 m/s MV DecT: 112 ms MV A Junior: 0.52 m/s MV E/A Ratio: 1.11 RAP: 5.00 mmHg RVSP: 13.59 mmHg FINDINGS -------- Sinus rhythm. This was a technically adequate study. The left ventricular size is normal. There is mild concentric left ventricular hypertrophy. Overa ll left ventricular systolic function is normal with, an EF between 55 - 60 %. The diastolic fillin g pattern is normal for the age of the patient 6.51. The right ventricle is mildly enlarged. Normal LA size by volume 22+/-6 ml/m2. The right atrial size is normal. Interatrial and interventricular septum intact. There is no evidence of aortic regurgitation. There is no evidence of aortic stenosis. There is trace mitral regurgitation. Trace tricuspid regurgitation present. There is no evidence of pulmonary hypertension. The right ventricular systolic pressure, as measured by Doppler, is 13.59mmHg. There is no pulmonic regurgitation present. The aortic root size is normal. IVC Not well visulized. Echo free space indicative of a pericardial fat pad. There is no pericardial effusion. CONCLUSIONS -------- 1. The left ventricular size is normal. 2. There is mild concentric left ventricular hypertrophy. 3. Overall left ventricular systolic function is normal with, an EF between 55 - 60 %. 4. The diastolic filling pattern is normal for the age of the patient 6.51 5. The right ventricle is mildly enlarged. 6. Normal LA size by volume 22+/-6 ml/m2. 7. The right atrial size is normal. 8. There is trace mitral regurgitation. 9. Trace tricuspid regurgitation present. CRINKLING MACHINE OPERATOR: Ebony Hoskins RDCS
--- NOTE | 2021-07-26 14:22 | EST ---
EXERCISE STRESS AGE: 45 SEX: M HT: 6'1" WT: 265 lbs. PROTOCOL: Lee. STAGE: 3 DURATION OF EXERCISE: 9:00 HEART RATE REST: 86 BLOOD PRESSURE REST: 136/96 MAXIMUM HEART RATE ACHIEVED: 169 MAXIMUM BLOOD PRESSURE: 173/80 85% MPHR: 148 100% MPHR: 174 METS: 10.3 INDICATIONS: Syncope RESULTS: Baseline EKG revealed normal sinus rhythm without significant ST and T-wave changes. Patient walked on a standard Lee protocol for a total duration of 9 minutes and achieved a maximal heart rate of 169 beats per minute which is well above 85% of predicted maximal. He developed fatigue and shortness of breath but did not have any anginal symptoms. EKG did not reveal any ST-segment changes to indicate ischemia. There was no arrhythmia. By EKG criteria, this is a negative stress test with fair exercise capacity. KALPANA / CECILY: [id number] /
== END | disposition home or self-care (01) ==
LOC: RADNMMAIN 08:05
PROVIDERS: ATTEND Family Medicine
DX: R55 Syncope and collapse (principal); I08.1 Rheumatic disorders of both mitral and tricuspid valves
CPT/HCPCS: 93017; 93306; 93880

== ENCOUNTER → 2022-08-06 | Outpatient (CLI) | payer OTHER ==
--- NOTE | 2022-08-07 07:07 | MR ---
EXAMINATION TYPE: MR lumbar spine wo con DATE OF EXAM: 08/06/2022 COMPARISON: NONE HISTORY: Low back pain into rt lower extremity. Right-sided sciatica. TECHNIQUE: Multiplanar, multisequence imaging of the lumbar spine is performed without IV contrast. FINDINGS: Sagittal images of the lumbar spine show vertebral body height to appear satisfactory. Ther e is slight grade 1 retrolisthesis L3 on L4 and L4 on L5. There is transitional L6 type vertebra. Mul tilevel disc desiccation. Moderate disc space narrowing at the L5-L6 level. The conus medullaris is n ormal in position and signal ending inferior L1 level. The bone marrow signal intensity is within no rmal limits. Axial images show T12-L1 through the L2-L3 levels to appear within normal limits. Axial images at L3-L4 level mild mild broad-based posterior disc protrusion mildly effacing the anter ior thecal sac. Mild right-sided anterior inferior neural foraminal narrowing. Axial images at L4-L5 levels with mild broad disc bulge minimally effacing the anterior thecal sac. M ild right-sided anterior inferior neural foraminal narrowing. Axial images at L5-L6 level show mild to moderate broad disc bulge mildly effacing the anterior theca l sac and causing moderate right greater than left bilateral neural foraminal narrowing with encroach ment on the right L5 nerve seen sagittal image 14 and axial image 8. Axial images of L6-S1 level appear within normal limits. Paraspinal muscle bulk is maintained. IMPRESSION: Multilevel degenerative changes as detailed above. Attention to L5-L6 level where encroac hment on the right L5 nerve is identified
== END | disposition home or self-care (01) ==
LOC: RADMRIMAIN 16:20
PROVIDERS: ATTEND Family Medicine
DX: M47.816 Spondylosis without myelopathy or radiculopathy, lumbar region (principal); M54.41 Lumbago with sciatica, right side
CPT/HCPCS: 72148

== ENCOUNTER 2022-09-20 09:39 | Day surgery (SDC) | payer OTHER ==
[2022-09-20 10:14] VITALS: TEMP 97
[2022-09-20] MEDS ORDERED: LACTATED RINGERS 1,000 ML IV ONE (10:20)
[2022-09-20] MEDS ORDERED: methylPREDNISolone ACETATE 80 MG/ML 1 ML VIAL ONE (10:24)
[2022-09-20] MEDS ORDERED: IOPAMIDOL M200 10 ML VIAL ONE (10:24)
[2022-09-20] MEDS ORDERED: MIDAZOLAM 2 MG/2 ML VIAL ONE (10:24)
[2022-09-20] MEDS ORDERED: fentaNYL (PF) 50 MCG/ML 2 ML AMP ONE (10:24)
[2022-09-20] MEDS ORDERED: IV FLUID CONTINUATION 1,000 ML IV ONE (10:35)
--- NOTE | 2022-09-20 10:44 | P.PCN ---
Date of Procedure: 09/20/22 Procedure(s) Performed: PREOPERATIVE DIAGNOSIS: 1-Lumbar radiculopathy . 2-lumbar degenerative disc disease. POSTOPERATIVE DIAGNOSIS: Same as preoperative diagnoses. PROCEDURE 1. Transforaminal epidural steroid injection under fluoroscopic guidance at bilateral L5-6 level. (Fluoroscopy images stored on file in the radiology Department ) 2. Lumbar epidurogram . ANESTHESIA: Local with 1% lidocaine 3 ml , moderate sedation with intravenous Ve rsed 3 mg and fentanyle 100 micrograms. Sedation start time : 1028 . Sedation. stop time :1040 . EBL: Minimal PROCEDURE INDICATION: The patient with low back pain and radiculopathy symptoms unresponsive to conservative treatment. PROCEDURE DESCRIPTION / TECHNIQUE: The patient was seen and identified in the preoperative area. Risks, benefits, complications, and alternatives were discussed with the patient. The patient agreed to proceed with the procedure and signed the consent. IV was started, and vital signs were stable. Patient was taken to the OR and time out was completed. The patient was placed in the prone position on procedure table and a pillow was placed under the abdomen to reduce lumbar lordosis. The lumbosacral area was prepped and draped in the usual sterile fashion. Critical pause was taken. Vital signs were closely monitored during the procedure. Conscious sedation was used during the procedure to decrease patient s anxiety. Using oblique fluoroscopy, the chin of the ``Asaf dog at right L5-6 level was identified, and the skin and deeper tissues just below was localized with 1% lidocaine. Subsequently, a 22-gauge 5-inch spinal needle was advanced under a tunneled view fluoroscopic guidance just underneath the chin of the `Hollyy dog at the right L5-6 Under lateral fluoroscopy, the needle was then advanced to the posterior border of the interforaminal space. After negative aspiration of CSF and blood and with no paresthesias, 1 mL Isovue 200 contrast dye was injected excellent epidurogram and outlining of the nerve root Subsequently, 3 mL of block solution containing 40 mg Depo-Medrol and 2 mL of 0.9% normal saline PF was injected. Needle was removed and the same procedure was repeated at the left L5-6 level. At the end of the procedure, skin was cleansed, and bandages were applied. COMPLICATIONS:none DISPOSITION / PLANS: The patient was placed in a supine position and transferred to the recovery area in a stable condition for observation. There was no evidence of lower extremity motor or sensory deficit after the procedure. Patient was discharged from the recovery room after meeting discharge criteria. Home discharge instructions were given to the patient by the staff. The patient was reexamined prior to discharge.
[2022-09-20 11:02] VITALS: RESP 16
[2022-09-20] MEDS ORDERED: LIDOCAINE 1% (10MG/ML) FOR IV START INTRADERMA PRN (11:05)
[2022-09-20] MEDS ORDERED: LACTATED RINGERS 1,000 ML IV SCH (11:05)
[2022-09-20 11:07] VITALS: BP 111/78; PULSE 73
--- NOTE | 2022-09-20 11:51 | FL ---
Intraoperative/procedural fluoroscopic services were provided. Total fluoroscopy time is 11 seconds w ith a total of 2 submitted images to PACS. Please see the operative/procedural note for further detai ls. DAP: [id number]
== END 2022-09-20 11:45 | disposition home or self-care (01) ==
LOC: ORPAIN 09:39
PROVIDERS: ATTEND Specialist
DX: M51.16 Intervertebral disc disorders with radiculopathy, lumbar region (principal)
CPT/HCPCS: 64483; 99152; J2250; J1040; J3010; Q9966

== ENCOUNTER → 2022-10-11 | Outpatient (CLI) | payer OTHER ==
[2022-10-11 07:51] VITALS: BP 135/89; PULSE 84; RESP 20; TEMP 96
--- NOTE | 2022-10-11 08:02 | P.PN ---
Subjective Progress Note Date: 10/11/22 This is a follow-up visit for 46 yr old male with history of severe and chronic LBP , diagnosed with lumbar radiculopathy, lumbar DDD, lumbar spondylosis and facet arthropathy without myelopathy for evaluation. Pt states pain level is at 6 /10 in intensity, constant, localized in the lower lumbar spine, recently we have done bilateral transforaminal epidural steroid injection at L5 6, she reported that the injection helped his radicular symptoms significantly currently is complaining of severe low back pain localized in the low back area which is not radiated to the lower extremity any more, it is constant and increases with any activity interfered with his ability to work and function Pain is provoked by standing/ walking for periods of 10 min or more. Pain is alleviated by medications (Celebrex), chiropractic treatments weekly x 3 mo, repositioning and rest. PT was $70 per visit which he could not afford. PMH: Hx of Worth Palsy PSH: R Knee Aspiration (2020), L Wrist Surgery SH: Never smoker, Occasional ETOH use, No illicit drug use FH: Non contributory All: NKDA Meds: See list REVIEW OF ORGAN SYSTEMS: CONSTITUTIONAL: No fevers or chills. No recent weight loss. NEUROLOGICAL: + numbness and tingling along the distal extremities. No seizure disorders or headaches. MUSCULOSKELETAL: + pain PSYCHIATRIC: Denies current depression or suicidal thoughts. Physical Examinations : Constitutional : Cooperative , not in acute distress . Neurologic : Cranial nerve II to XII intact. No focal neurological deficits. Psychiatric : alert & oriented x 3. Matching mood & appropriate affect. Judgment & insight intact. Musculoskeletal : Cervical Spine Motor strength in the deltoid and biceps: Normal right side. Normal Left side Motor strength biceps and the wrist extensors: Normal right side . Normal left side Motor strength in the triceps muscle: Normal right side. Normal left side Deep tendon reflexes: Normal at the biceps. Normal at Brachioradialis. Normal at triceps Vertebral body tenderness to deep palpation over Cervical facet loading test: positive bilaterally Spurling test: positive bilaterally Neck distraction test: positive bilaterally Anna Marie sign: positive bilaterally Lumbar spine Motor strength lower extremities ,thigh and legs 5/5 Right side , 5/5 Left side Deep tendon reflexes : Normal Knee Jerk. Normal Ankle Jerk Vertebral body tenderness over L5 Lumbar facet Loading Test: positive Right / positive Left Range of motion of the lumbar spine Flexion 30 degrees, extension 10 degrees Straight Leg Raise test: Left/ Right positive at degree David test: positive right / positive left. Severe tenderness over the Sacroiliac joint on the Right / Left sides Gaenslen test: positive bilaterally Seated flexion test: positive bilaterally. Sacral spine : Severe tenderness over the Sacroiliac joint: right side / left side Range of motion: Flexion of the lumbar spine <60 degrees Range of motion: Extension of the lumbar spine <20 degrees Gaenslen's Test positive Willie's Test positive David test: positive right side / left side Thigh Thrust Test Sacral Thrust Test Imaging: MRI without contrast of the lumbar spine from 08/06/22 reviewed Assessment/ Plan : Lumbar DDD, lumbar spondylosis, lumbar radiculopathy Radicular symptoms improved after bilateral transforaminal epidural steroid injection at L5 6, Recommendation of lumbar epidural steroid injection at L5-S1. PQRS Narrative: Smoking Status Never smoker Home Medications: Ambulatory Orders Acetaminophen Tab [Tylenol] 500 mg PO Q6HR PRN 02/13/21 diphenhydrAMINE [Benadryl] 25 mg PO Q6HR PRN cap 02/15/21 Controlled Substance Measures - Controlled Substance Measures Is patient prescribed a controlled substance at discharge?: No
== END ==
LOC: PNWHC3 07:28
PROVIDERS: ATTEND Specialist
DX: M51.16 Intervertebral disc disorders with radiculopathy, lumbar region (principal); M47.26 Other spondylosis with radiculopathy, lumbar region; G51.0 Bell's palsy; Z88.1 Allergy status to other antibiotic agents
CPT/HCPCS: 99211

== ENCOUNTER 2022-10-30 10:53 | Day surgery (SDC) | payer OTHER ==
[~2022-10-30 10:53] MED LIST changes: -DEXAMETHASONE SOD PHOSPHATE 10 MG/ML 1 ML VIAL IV ONE; +LIDOCAINE 1% (10MG/ML) FOR IV START INTRADERMA PRN; -LIDOCAINE 1% 20 ML VIAL (10MG/ML) FOR IV START INTRADERMA PRN; -ONDANSETRON 4 MG/2 ML VIAL IVP ONE; -SCOPOLAMINE 1.5MG/72HR PATCH TRANSDERM ONE; -ceFAZolin 3 GM in SODIUM CHLORIDE 0.9% 100 ML IVPB ONE
[2022-10-30 11:29] VITALS: RESP 16; TEMP 97.3
[2022-10-30] MEDS ORDERED: IOPAMIDOL M200 10 ML VIAL ONE (11:46)
[2022-10-30] MEDS ORDERED: fentaNYL (PF) 50 MCG/ML 2 ML AMP ONE (11:46)
[2022-10-30] MEDS ORDERED: MIDAZOLAM 2 MG/2 ML VIAL ONE (11:46)
[2022-10-30] MEDS ORDERED: methylPREDNISolone ACETATE 80 MG/ML 1 ML VIAL ONE (11:46)
--- NOTE | 2022-10-30 12:00 | P.PCN ---
Date of Procedure: 10/30/22 Procedure(s) Performed: PREOPERATIVE DIAGNOSIS: 1- Lumbar Degenerative Disc Diseases 2-Lumbar spondylosis with Facet arthropathy without myelopathy. 3-lumbar radiculopathy POSTOPERATIVE DIAGNOSIS: 1-lumbar degenerative disc disease. 2-lumbar spondylosis with facet arthropathy without myelopathy. 3-lumbar radiculopathy PROCEDURE 1. Lumbar epidural steroid injection under fluoroscopic guidance at the L5-S1 level. (Fluoroscopy imaging was available in radiology department) 2. Lumbar epidurogram. ANESTHESIA: moderate sedation with intravenous Versed 2 mg ,and fentanyle 100 Mcg Sedation start time : 1148 Sedation end time :1152 EBL: Minimal PROCEDURE INDICATION: The patient with low back pain and radiculitis symptoms unresponsive to conservative treatment. Fluoroscopy was used to optimize visualization of the needle placement and to maximize safety. PROCEDURE DESCRIPTION / TECHNIQUE: The patient was seen and identified in the preoperative area. Risks, benefits, complications including but not limited to infections ,bleeding ,allergic reaction to the medications ,nerve damage and not complete pain releife , and alternatives were discussed with the patient. The patient agreed to proceed with the procedure and signed the consent. IV was started, and vital signs were stable. Patient was taken to the OR and time out was completed. The patient was placed in the prone position on procedure table and a pillow was placed under the abdomen to reduce lumbar lordosis. The lumbosacral area was prepped and draped in the usual sterile fashion.ere closely monitored during the procedure. Consci ous sedation was used during the procedure to decrease patients anxiety. Vital signs was monitered during the entire procedure. Using anterior-posterior fluoroscopy, the L5-S1 interlaminar space was identified and the skin over this site was marked and then infiltrated with 1% lidocaine subcutaneously. Subsequently, a 20-gauge Tuohy epidural needle was inserted and advanced toward the epidural space using the ``Loss of resistance technique and guided by AP and lateral fluoroscopy. The correct needle position in the epidural space was verified with the injection of 2 mL of the water soluble contrast dye Isovue 200 contrast and observing an excellent epidurogram with the epidural spread of the dye, after negative aspiration for blood and CSF and in the absence of paresthesias. Again after negative aspiration, a 6 ml mixture containing 80 mg of Depo-medrol ( Preservetive Free ), and 2 ml of preservative free Normal Saline, and 2 ml of preservative free lidocaine 1% solution was injected and a washout of epidurogram was seen. Needle was withdrawn intact, skin was cleansed, and bandages were applied. COMPLICATIONS: None DISPOSITION / PLANS: The patient was placed in a supine position and transferred to the recovery area in a stable condition for observation. There was no evidence of lower extremity motor or sensory deficit after the procedure. Patient was discharged from the recovery room after meeting discharge criteria. Home discharge instructions were given to the patient by the staff. The patient was reexamined prior to discharge. The patient will schedule a follow up in the clinic in 2-4 weeks.
[2022-10-30] MEDS ORDERED: IV FLUID CONTINUATION 1,000 ML IV ONE (12:03)
[2022-10-30 12:26] VITALS: BP 111/72; PULSE 69
--- NOTE | 2022-10-30 12:42 | FL ---
Fluoroscopy History: Fluoroscopy fl time 1 sec dap .[id number]
== END 2022-10-30 12:33 ==
LOC: ORPAIN 10:53
PROVIDERS: ATTEND Specialist
DX: M51.16 Intervertebral disc disorders with radiculopathy, lumbar region (principal); M47.26 Other spondylosis with radiculopathy, lumbar region
CPT/HCPCS: 62323; J2250; J1040; J3010; Q9966

== ENCOUNTER → 2022-11-22 | Outpatient (CLI) | payer OTHER ==
[2022-11-22 08:30] VITALS: BP 163/94; PULSE 80; RESP 18; TEMP 97.6
--- NOTE | 2022-11-22 12:37 | P.PAINPG ---
PQRS Measure Charge Sheet Comment: A 46 yr old male with a history of severe and chronic LBP secondary to lumbar DDD and spondylosis with facet arthropathy without myelopathy presents today for evaluation s/p ROSALES L5-S1. Pt states he experienced 80% pain relief x 3 wks s/p procedure. Pain level is provoked at 6 /10 in intensity, constant, localized in the lumbar spine, sore in character w/o shooting pain. Pain is provoked by bending, lifting. Pain is alleviated with medications, injections, ice, chiropractic treatments weekly then monthly since Jun 2022, physician guided home exercises 3 times weekly since Aug as provided by Dr Yang's office, massage bed use, laying supine and rest. Pt states he can not afford $70/ visit out of pocket costs of PT. Interventional pain procedures completed include ROSALES L5-S1 x1, BL TFESI L5-S1 x1 Patient is currently on Celebrex, Aleve, Neurontin Patient denies any side effects of the medication(s), denies excessive drowsiness or sleepiness, denies suicidal ideation and reports that the current pain medication is helping to control the pain and improve activities of daily living. Patient denies any motor or sensory deficits. Patient denies any fever or night sweats, denies any change in the bowel movements or urination. Physical Examination: -Constitutional: Cooperative. Not in acute distress . - Neurologic: Cranial nerve II to XII intact. No focal neurological deficits. - Psychatric: Alert & oriented x 3. Matching mood & appropriate affect. Judgment and insight intact. - Musculoskeletal: Cervical spine: Muscle bulk/ tone/ strength in the bilateral upper extremities normal Vertebral body tenderness to palpation over Spurling test positive Distraction test positive Facet loading test positive TTP Thoracic spine Muscle bulk / tone/ strength in the bilateral paraspinal muscles normal Vertebral body tender to palpation over Facet loading test positive TTP Lumbar spine: Motor bulk/ tone/ strength lower extremities , thigh and legs : 5/5 Deep tendon reflexes : Normal Knee Jerk. Normal Ankle Jerk . Vertebral body tenderness to palpation over L5 Vallecillo Test positive Lumbar Facet Loading Test positive Straight Leg Raise: positive at 30 degrees right side/ left side Gaenslen's Test positive Sacral spine : Severe tenderness over the Sacroiliac joint: right side / left side Range of motion: Flexion of the lumbar spine <60 degrees Range of motion: Extension of the lumbar spine <20 degrees Gaenslen's Test positive right side / left side David test: positive right side / left side Thigh Thrust Test positive right side / left side Sacral Thrust Test positive right side / left side Assessment and plan: Chronic LBP secondary to lumbar DDD, spondylosis with facet arthropathy without myelopathy Recommendation of ROSALES L5-L6 #2. May need a series of injections for optimal pain relief. Risks, benefits of procedure discussed and pt verbalized u nderstanding. Admits to anticoagulant use or medical history of diabetes. Protocol for discontinuation/ continuation of medications nahun procedure discussed. Minimal anesthesia provided, if clinically indicated, consisting of Versed and Fentanyl. All questions answered. I have spent less than 30 minutes on patient care today. Dr Valera was available by phone for the evaluation of this patient. The time was used to review the medical records including relevant urine studies and Prescription history (MAPs), review of the available imaging, evaluation and examination of the patient, coordination of care with the medical staff and if applicable referring physicians, as well as creation of the medical record PQRS Narrative: Smoking Status Never smoker Hx Alcohol Use (MH) Yes: 3 DRINKS PER WEEK. Home Medications: Ambulatory Orders Celebrex (Unknown) 1 tab PO DIRECTED 10/24/22 Gabapentin(Unknown) 1 tab PO DIRECTED 10/24/22 Controlled Substance Measures - Controlled Substance Measures Is patient prescribed a controlled substance at discharge?: No
== END ==
LOC: PNWHC3 07:23
PROVIDERS: ATTEND Specialist
DX: M51.36 Other intervertebral disc degeneration, lumbar region (principal); M47.816 Spondylosis without myelopathy or radiculopathy, lumbar region; G89.29 Other chronic pain
CPT/HCPCS: 99211

== ENCOUNTER 2022-12-04 08:19 | Day surgery (SDC) | payer OTHER ==
[2022-12-04 08:41] VITALS: TEMP 97.3
[2022-12-04] MEDS ORDERED: LACTATED RINGERS 1,000 ML IV ONE (08:51)
[2022-12-04] MEDS ORDERED: MIDAZOLAM 2 MG/2 ML VIAL ONE (09:07)
[2022-12-04] MEDS ORDERED: IOPAMIDOL M200 10 ML VIAL ONE (09:07)
[2022-12-04] MEDS ORDERED: fentaNYL (PF) 50 MCG/ML 2 ML AMP ONE (09:07)
[2022-12-04] MEDS ORDERED: methylPREDNISolone ACETATE 80 MG/ML 1 ML VIAL ONE (09:07)
--- NOTE | 2022-12-04 09:15 | P.PCN ---
Date of Procedure: 12/04/22 Procedure(s) Performed: PREOPERATIVE DIAGNOSIS: 1- Lumbar Degenerative Disc Diseases 2-lumbar radiculopathy POSTOPERATIVE DIAGNOSIS: 1-lumbar degenerative disc disease. 2-lumbar radiculopathy PROCEDURE 1. Lumbar epidural steroid injection under fluoroscopic guidance at the L5-6 level. (Fluoroscopy imaging was available in radiology department) 2. Lumbar epidurogram. ANESTHESIA: moderate sedation with intravenous Versed 2 mg ,and fentanyle 100 Mcg Sedation start time : 906 Sedation end time : 911 EBL: Minimal PROCEDURE INDICATION: The patient with low back pain and radiculitis symptoms unresponsive to conservative treatment. Fluoroscopy was used to optimize visualization of the needle placement and to maximize safety. PROCEDURE DESCRIPTION / TECHNIQUE: The patient was seen and identified in the preoperative area. Risks, benefits, complications including but not limited to infections ,bleeding ,allergic reaction to the medications ,nerve damage and not complete pain releife , and alternatives were discussed with the patient. The patient agreed to proceed with the procedure and signed the consent. IV was started, and vital signs were stable. Patient was taken to the OR and time out was completed. The patient was placed in the prone position on procedure table and a pillow was placed under the abdomen to reduce lumbar lordosis. The lumbosacral area was prepped and draped in the usual sterile fashion.ere closely monitored during the procedure. Conscious sedation was used during the procedure to decrease patients anxiety. Vital signs was monitered during the entire procedure. Using anterior-posterior fluoroscopy, the L5-6 interlaminar space was identified and the skin over this site was marked and then infiltrated with 1% lidocaine subcutaneously. Subsequently, a 20-gauge Tuohy epidural needle was inserted and advanced toward the epidural space using the ``Loss of resistance technique and guided by AP and lateral fluoroscopy. The correct needle position in the epidural space was verified with the injection of 2 mL of the water soluble contrast dye Isovue 200 contrast and observing an excellent epidurogram with the epidural spread of the dye, after negative aspiration for blood and CSF and in the absence of paresthesias. Again after negative aspiration, a 6 ml mixture containing 80 mg of Depo-medrol ( Preservetive Free ), and 2 ml of preservative free Normal Saline, and 2 ml of preservative free lidocaine 1% solution was injected and a washout of epidurogram was seen. Needle was withdrawn intact, skin was cleansed, and bandages were applied. COMPLICATIONS: None DISPOSITION / PLANS: The patient was placed in a supine position and transferred to the recovery area in a stable condition for observation. There was no evidence of lower extremity motor or sensory deficit after the procedure. Patient was discharged from the recovery room after meeting discharge criteria. Home discharge instructions were given to the patient by the staff. The patient was reexamined prior to discharge. The patient will schedule a follow up in the clinic in 2-4 weeks.
[2022-12-04] MEDS ORDERED: IV FLUID CONTINUATION 700 ML IV ONE (09:18)
--- NOTE | 2022-12-04 09:29 | FL ---
Intraoperative/procedural fluoroscopic services were provided. Total fluoroscopy time is 1.5 seconds with a total of 1 submitted images to PACS. Please see the operative/procedural note for further deta ils. DAP: [id number] mGym2
[2022-12-04 09:43] VITALS: BP 122/85; PULSE 80; RESP 20
[2022-12-04] MEDS ORDERED: LACTATED RINGERS 1,000 ML IV SCH (09:44)
[2022-12-04] MEDS ORDERED: LIDOCAINE 1% (10MG/ML) FOR IV START INTRADERMA PRN (09:44)
== END 2022-12-04 09:54 | disposition home or self-care (01) ==
LOC: ORPAIN 08:19
PROVIDERS: ATTEND Specialist
DX: M51.16 Intervertebral disc disorders with radiculopathy, lumbar region (principal)
CPT/HCPCS: 62323; J2250; J1040; J3010; Q9966

== ENCOUNTER → 2022-12-26 | Outpatient (CLI) | payer OTHER ==
[2022-12-26 14:49] VITALS: BP 144/96; PULSE 73; RESP 18; TEMP 98.5
--- NOTE | 2022-12-26 15:12 | P.PAINPG ---
PQRS Measure Charge Sheet Comment: A 47 yr old male with a history of severe and chronic LBP secondary to lumbar DDD and spondylosis with facet arthropathy without myelopathy presents today for evaluation s/p ROSALES L5-L6. Pt states he experienced 0 % pain relief x 3 wks s/p procedure. Pain level is provoked at 6 /10 in intensity, constant, localized in the lumbar spine, sharp in character without shooting pain. Pain is provoked by over activity. Pain is alleviated with physician guided exercises daily, chiropractic treatments semi weekly to monthly since Jul 2022, medications, heat, use of a conversion table, massage bed use, reclining, repositioning and rest. Can not afford PT due to $70 per visit costs are too expensive. Interventional pain procedures completed include ROSALES L5-L6 x2, TFESI L5-L6 x1 Patient is currently on Celebrex, Aleve, Neurontin Patient denies any side effects of the medication(s), denies excessive drowsiness or sleepiness, denies suicidal ideation and reports that the current pain medication is helping to control the pain and improve activities of daily living. Patient denies any motor or sensory deficits. Patient denies any fever or night sweats, denies any change in the bowel movements or urination. Physical Examination: -Constitutional: Cooperative. Not in acute distress . - Neurologic: Cranial nerve II to XII intact. No focal neurological deficits. - Psychatric: Alert & oriented x 3. Matching mood & appropriate affect. Judgment and insight intact. - Musculoskeletal: Cervical spine: Muscle bulk/ tone/ strength in the bilateral upper extremities normal Vertebral body tenderness to palpation over Spurling test positive Distraction test positive Facet loading test positive TTP Thoracic spine Muscle bulk / tone/ strength in the bilateral paraspinal muscles normal Vertebral body tender to palpation over Facet loading test positive TTP Lumbar spine: Motor bulk/ tone/ strength lower extremities , thigh and legs : 5/5 Deep tendon reflexes : Normal Knee Jerk. Normal Ankle Jerk . Vertebral body tenderness to palpation over Vallecillo Test positive Lumbar Facet Loading Test positive over BL L5-L6, L6-S1 Straight Leg Raise: positive at 30 degrees right side/ left side Gaenslen's Test positive Sacral spine : Severe tenderness over the Sacroiliac joint: right side / left side Range of motion: Flexion of the lumbar spine <60 degrees Range of motion: Extension of the lumbar spine <20 degrees Gaenslen's Test positive right side / left side David test: positive right side / left side Thigh Thrust Test positive right side / left side Sacral Thrust Test positive right side / left side Assessment and plan: Chronic LBP secondary to lumbar DDD, spondylosis with facet arthropathy without myelopathy Recommendation of BL MBB L5-L6, L6-S1 #1. May need a series of injections, up until RFA, for optimal pain relief. Risks, benefits of procedure discussed and pt verbalized understanding. Admits to anticoagulant use or medical history of diabetes. Protocol for discontinuation/ continuation of medications nahun procedure discussed. Minimal anesthesia provided, if clinically indicated, consisting of Versed and Fentanyl. All questions answered. I have spent less than 30 minutes on patient care today. Dr Valera was available by phone for the evaluation of this patient. The time was used to revi ew the medical records including relevant urine studies and Prescription history (MAPs), review of the available imaging, evaluation and examination of the patient, coordination of care with the medical staff and if applicable referring physicians, as well as creation of the medical record - Pain Location Bilateral Lower Back Non-Pharmacological Interventions: Chiropractic Treatment, Elevation, Exercise, Heat, Home Exercise, Inactivity, Massage, Physical Therapy, Position/Reposition, Sitting, Stretching Pharmacological Interventions: Epidural, PRN Medication, Scheduled Medication PQRS Narrative: Smoking Status Never smoker Hx Alcohol Use (MH) Yes: 3 DRINKS PER WEEK. Home Medications: Ambulatory Orders Celebrex (Unknown) 1 tab PO DIRECTED 10/24/22 Gabapentin(Unknown) 1 tab PO DIRECTED 10/24/22 Controlled Substance Measures - Controlled Substance Measures Is patient prescribed a controlled substance at discharge?: No
== END ==
LOC: PNWHC3 14:08
PROVIDERS: ATTEND Specialist
DX: M51.37 Other intervertebral disc degeneration, lumbosacral region (principal); M47.817 Spondylosis without myelopathy or radiculopathy, lumbosacral region; G89.29 Other chronic pain
CPT/HCPCS: 99211

== ENCOUNTER 2023-01-11 06:16 | Day surgery (SDC) | payer OTHER ==
[2023-01-11 06:57] VITALS: RESP 16; TEMP 97.4
[2023-01-11] MEDS ORDERED: LACTATED RINGERS 1,000 ML IV ONE (07:00)
[2023-01-11] MEDS ORDERED: LIDOCAINE 1% (10MG/ML) FOR IV START INTRADERMA PRN (07:09)
[2023-01-11] MEDS ORDERED: LACTATED RINGERS 1,000 ML IV SCH (07:09)
[2023-01-11] MEDS ORDERED: ROPIVACAINE 5 MG/ML 20 ML AMPULE ONE (07:31)
[2023-01-11] MEDS ORDERED: methylPREDNISolone ACETATE 40 MG/ML 1 ML VIAL ONE (07:31)
[2023-01-11] MEDS ORDERED: fentaNYL (PF) 50 MCG/ML 2 ML AMP ONE (07:31)
[2023-01-11] MEDS ORDERED: MIDAZOLAM 2 MG/2 ML VIAL ONE (07:31)
--- NOTE | 2023-01-11 07:51 | P.PCN ---
Date of Procedure: 01/11/23 Procedure(s) Performed: PREOPERATIVE DIAGNOSIS : 1- Lumbar spondylosis with Facet Arthropathy without myelopathy . 2- Lumber degenerative disc disease POSTOPERATIVE DIAGNOSIS: 1- Lumbar spondylosis with Facet Arthropathy without myelopathy . 2- Lumber degenerative disc disease PROCEDURE: Diagnostic bilateral L4 , L5 , and L6 medial branch block under fluoroscopy guidance(fluoroscopy images available in the radiology Department ) ( To target the facet joint between Bilateral L5-6 , and L6-S1 ) ANESTHESIA:, Monitored anesthesia care as per anesthesia department. EBL: Minimal COMPLICATION: None PROCEDURE INDICATION: Chronic low back pain secondary to Facet arthropathy unresponsive to conservative treatment. PROCEDURE DESCRIPTION: the patient was seen and identified in the preop holding area , risks and benefits and possible complications of the procedure and alternative were discussed with the patient, and the patient agreed to proceed with the procedure and signed the consent and vital signs monitored during the procedure and fluoroscopy was used to maximize the benefit and accuracy of the needle placement, and sedation was given to decrease patient anxiety, patient was taken to the procedure room and placed in prone position vital signs monitored in the back prepped with chlorhexidine X3 then under strict sterile technique using a right oblique fluoroscopy ,the junction of the transverse process and the superior articulating process of the right L4 , L5 , and L6 vertebra which corresponding to the fluoroscopy image of the eye of the Asaf dog on the block side for the medial branches and subsequently , after local infiltration of skin and subcu tissuies with Ropivacaine 0.5 % , one mL at each level ,then 22-gauge Quincke-type needles , 3 needle was used , each one of them placed at the junction of the base of the transverse process and the superior articular process at the appropriate level, and the needle was advanced until the periosteum contacted, needle placement confirmed with AP oblique and lateral view and after appropriate needle placement confirmed, and after negative aspiration for heme and CSF and there was no paresthesia 1-1/2 mL of Ropivacaine 0.5% mixed with 20 mg Depo-Medrol , then half mL injected at each level after negative aspiration the needle subsequently removed and the same procedure repeated for the left side at left side at L4 , L5 and L6 levels. At the end of the procedure and the needles removed and a bandage applied after the skin was cleaned the cleaning solution patient taken to recovery room in stable condition and monitors in the recovery room for 20-30 minutes and discharged home in stable condition after discharge criteria met and patient will follow up with the pain clinic in 2-4 weeks
[2023-01-11] MEDS ORDERED: IV FLUID CONTINUATION 1,000 ML IV ONE ×2 (07:54)
[2023-01-11 08:13] VITALS: BP 121/82; PULSE 83
--- NOTE | 2023-01-11 08:13 | FL ---
Intraoperative/procedural fluoroscopic services were provided. Total fluoroscopy time is 1.5 seconds with a total of 5 submitted images to PACS. Please see the operative/procedural note for further deta ils. DAP: [id number] mGym2
== END 2023-01-11 08:25 | disposition home or self-care (01) ==
LOC: ORPAIN 06:16
PROVIDERS: ATTEND Specialist
DX: M51.36 Other intervertebral disc degeneration, lumbar region (principal); M47.816 Spondylosis without myelopathy or radiculopathy, lumbar region; G89.29 Other chronic pain; I10 Essential (primary) hypertension; Z98.890 Other specified postprocedural states; Z79.899 Other long term (current) drug therapy
CPT/HCPCS: 64493; 64494 ×2; J2250; J1030; J3010; J2795

== ENCOUNTER → 2023-02-07 | Outpatient (CLI) | payer OTHER ==
[2023-02-07 08:17] VITALS: BP 132/86; PULSE 75; RESP 16; TEMP 98
--- NOTE | 2023-02-07 14:47 | P.PAINPG ---
PQRS Measure Charge Sheet Comment: A 47 yr old male with a history of severe and chronic LBP secondary to lumbar DDD and spondylosis with facet arthropathy without myelopathy presents today for evaluation s/p BL MBB L5-L6, L6-S1 #1. Pt states he experienced 85% pain relief x 1 day s/p procedure. Pain level is provoked at 6 /10 in intensity, constant, localized in the lumbar spine, sharp in character without shooting pain. Pain is provoked by over activity. Pain is alleviated with physician guided exercises daily, chiropractic treatments semi weekly to monthly since Jul 2022, medications, heat, use of a conversion table, massage bed use, reclining, repositioning and rest. Can not afford PT due to $70 per visit costs are too expensive. Oswestry axial pain score of 29. Interventional pain procedures completed include ROSALES L5-L6 x2, TFESI L5-L6 x1 Patient is currently on Celebrex, Aleve, Neurontin Patient denies any side effects of the medication(s), denies excessive drowsiness or sleepiness, denies suicidal ideation and reports that the current pain medication is helping to control the pain and improve activities of daily living. Patient denies any motor or sensory deficits. Patient denies any fever or night sweats, denies any change in the bowel movements or urination. Physical Examination: -Constitutional: Cooperative. Not in acute distress . - Neurologic: Cranial nerve II to XII intact. No focal neurological deficits. - Psychatric: Alert & oriented x 3. Matching mood & appropriate affect. Judgment and insight intact. - Musculoskeletal: Cervical spine: Muscle bulk/ tone/ strength in the bilateral upper extremities normal Vertebral body tenderness to palpation over Spurling test positive Distraction test positive Facet loading test positive TTP Thoracic spine Muscle bulk / tone/ strength in the bilateral paraspinal muscles normal Vertebral body tender to palpation over Facet loading test positive TTP Lumbar spine: Motor bulk/ tone/ strength lower extremities , thigh and legs : 5/5 Deep tendon reflexes : Normal Knee Jerk. Normal Ankle Jerk . Vertebral body tenderness to palpation over Vallecillo Test positive Lumbar Facet Loading Test positive over BL L5-L6, L6-S1 Straight Leg Raise: positive at 30 degrees right side/ left side Gaenslen's Test positive Sacral spine : Severe tenderness over the Sacroiliac joint: right side / left side Range of motion: Flexion of the lumbar spine <60 degrees Range of motion: Extension of the lumbar spine <20 degrees Gaenslen's Test positive right side / left side David test: positive right side / left side Thigh Thrust Test positive right side / left side Sacral Thrust Test positive right side / left side Assessment and plan: Chronic LBP secondary to lumbar DDD, spondylosis with facet arthropathy without myelopathy Recommendation of BL MBB L5-L6, L6-S1 #2. May need a series of injections, up until RFA, for optimal pain relief. Risks, benefits of procedure discussed and pt verbalized understanding. Admits to anticoagulant use or medical history of diabetes. Protocol for discontinuation/ continuation of medications nahun procedure discussed. Minimal anesthesia provided, if clinically indicated, consisting of Versed and Fentanyl. All questions answered. I have spent less than 30 minutes on patient care today. Dr Valera was available by phone for the evaluation of this patient. The time was used to review the medical records including relevant urine studies and Prescription history (MAPs), review of the available imaging, evaluation and examination of the patient, coordination of care with the medical staff and if applicable referring physicians, as well as creation of the medical record PQRS Narrative: Smoking Status Never smoker Hx Alcohol Use (MH) Yes: 3 DRINKS PER WEEK. Home Medications: Ambulatory Orders Celecoxib [CeleBREX] 200 mg PO BID 01/11/23 Gabapentin [Neurontin] 300 mg PO TID 01/11/23 Ibuprofen [Motrin] 800 mg PO Q8H PRN 02/07/23 Controlled Substance Measures - Controlled Substance Measures Is patient prescribed a controlled substance at discharge?: No
== END ==
LOC: PNWHC3 07:41
PROVIDERS: ATTEND Specialist
DX: M51.37 Other intervertebral disc degeneration, lumbosacral region (principal); M47.817 Spondylosis without myelopathy or radiculopathy, lumbosacral region; G89.29 Other chronic pain
CPT/HCPCS: 99211

== ENCOUNTER → 2023-02-20 | Outpatient (CLI) | payer OTHER ==
--- NOTE | 2023-02-22 14:29 | CT ---
EXAMINATION TYPE: CT lumbar spine wo con DATE OF EXAM: 02/20/2023 5:56 PM COMPARISON: 08/06/2022 HISTORY: Lumbar spondylosis with radiculopathy. CT DLP: 1790.3 mGycm Automated exposure control for dose reduction was used. FINDINGS: Correlate with the nomenclature and numbering system used on today's exam. Suspect that there is sacr alization of the L5 segment rather than 6 lumbar segments. There is a rudimentary 12th rib. Again recommend correlating with the numbering system utilized on this exam prior to any surgical int ervention. Punctate right renal calcification noted. Unenhanced CT of the lumbar spine was performed. Bone and soft tissue window settings are submitted as well as coronal and sagittal reconstructions. L1-L2: Normal disc space height. No disc herniation protrusion or central stenosis. No facet joint arthropathy. No evidence for foraminal encroachment. L2-L3: Diffuse disc bulging with hypertrophy of facets. There is mild canal stenosis. Mild bilateral foraminal approach. L3-L4: There is a broad-based central and left paracentral disc protrusion. There is moderate effacem ent of thecal sac and ligamentum flavum atrophy. Mild canal stenosis. L4-L5: A vacuum disc with broad-based disc bulging. Mild effacement of thecal sac. Hypertrophic vogel es of the spine. There is moderate bilateral foraminal encroachment and borderline mild central steno sis. L5-S1: Sacralization of the L5 segment. IMPRESSION: Correlate with the numbering system utilized on today's exam prior to any surgical intervention. 1. Vacuum disc at the presumed L4-L5 level with disc bulging resulting in moderate bilateral foramina l encroachment and borderline to mild central canal stenosis. 2. Multilevel canal stenosis including levels L2-3 and L3-4 as discussed above.
== END | disposition home or self-care (01) ==
LOC: RADCTMAIN 17:15
PROVIDERS: ATTEND Orthopaedic Surgery
DX: M51.16 Intervertebral disc disorders with radiculopathy, lumbar region (principal); M47.26 Other spondylosis with radiculopathy, lumbar region; M48.061 Spinal stenosis, lumbar region without neurogenic claudication; M99.73 Connective tissue and disc stenosis of intervertebral foramina of lumbar region
CPT/HCPCS: 72131

== ENCOUNTER 2023-02-22 10:10 | Day surgery (SDC) | payer OTHER ==
[2023-02-18 12:58] VITALS: BMI 35.9
[~2023-02-22 10:10] MED LIST changes: -LIDOCAINE 1% (10MG/ML) FOR IV START INTRADERMA PRN
[2023-02-22] MEDS ORDERED: LACTATED RINGERS 1,000 ML IV SCH (10:50)
[2023-02-22] MEDS ORDERED: MIDAZOLAM 2 MG/2 ML VIAL ONE (11:53)
[2023-02-22] MEDS ORDERED: fentaNYL (PF) 50 MCG/ML 2 ML AMP ONE (11:53)
[2023-02-22] MEDS ORDERED: TRIAMCINOLONE ACETONIDE 40 MG/ML 1 ML VIAL ONE (11:59)
[2023-02-22] MEDS ORDERED: ROPIVACAINE 5 MG/ML 20 ML AMPULE ONE (11:59)
--- NOTE | 2023-02-22 12:15 | P.PCN ---
Date of Procedure: 02/22/23 Description of Procedure: Pre- and Post-operative Diagnosis: Lumbar facet arthropathy, and lumbar spondylosis without myelopathy. Procedure: #2 Diagnostic Medial Branch Block at bilateral Lumbar L5-L6 and #2 diagnostic dorsal ramus block at Lumbar 6/ sacral ala levels (total 4 levels) Surgeon: Sivakumar Philip Anesthesia: Local: 1% Lidocaine, IV sedation : Versed 2 mg and fentanyl 100 g. Complications: None EBL: None Specimen removed: None Fluoroscopic image: Saved to patient electronic medical records. Indications for Procedure: The patient is well known to pain clinic for his chronic low back pain management. The lumbar facet loading test was positive with a clinical diagnosis of lumbar facet arthropathy. Failed with conservative therapy. Patient had a great pain relief with the previous lumbar medial branch block. Came here for interventional help for better pain relief. Procedure and Findings: The patient was seen and examined. The written informed consent was obtained after explaining the risks, benefits and alternatives of the procedure to the patient. The patient was brought to the procedure room and was placed in the prone position on the operating table table. A pillow was placed under the abdomen to reduce lumbar lordosis. Standard anesthesia monitoring was done through out the procedure. The skin preparation was done with ChloraPrep X1, and draping was done in usual sterile fashion. Sterile technique was observed throughout the procedure. Using the fluoroscopy AP view, 6 lumbar vertebrae number counted- Dr. Valera was also in the room at the time of counting lumbar vertebrae. Under fluoroscopic guidance, right-sided the Lumbar 5, 6 and Sacral ala levels were identified in the AP view. For lumbar L5, and L6 levels the targeting area of superior articular process, and close to the most medial and superior aspect of transverse process identified, marked. 1ml of 1% Lidocaine was used with a 25 gauge needle to achieve adequate local anesthesia of the skin and subcutaneous tissue at each level. A 22 gauge 3.5 inch spinal needle was placed and advanced targeting area which was close to the most medial and superior aspect of the transverse process. For Lumbar 6/ sacral ala level, fluoroscope was used in the anteroposterior view, and the needle tip was placed at the superior and most medial part of sacral ala close to the superior articular process. A bony contact was obtained and needle tip position was confirmed at anteroposterior view. No paresthesia was noted. A negative aspiration was confirmed. 1 ml solution per level was injected, the block solution containing 5 ml of 0.5% ropivacaine preservative-free solution mixed with 40 MG of Kenalog. The needles were removed intact. Entire procedure repeated on the left side. Lumbar area was cleaned and bandages were applied. Disposition : The patient tolerated the procedure very well. The patient was transferred to the recovery room and remained stable until discharged home. The patient was given detailed discharge instructions for infection, bleeding, and increased pain at the injection site, and was advised to seek immediate medical attention should significant side effects develop. The patient will be scheduled with Pain Clinic within 4 weeks for lumbar radiofrequency ablation if it's helpfu
[2023-02-22] MEDS ORDERED: IV FLUID CONTINUATION 1,000 ML IV ONE (12:32)
[2023-02-22 12:35] VITALS: PULSE 66; RESP 16
[2023-02-22 12:38] VITALS: BP 136/86
--- NOTE | 2023-02-22 12:58 | FL ---
Fluoroscopy History: GABINO LUM FACET BLOCK BILAT LUMBAR FACET STEROID INJECTIONS, 4SEC FL TIME, [id number]
== END 2023-02-22 12:49 | disposition home or self-care (01) ==
LOC: ORPAIN 10:10
DX: M47.816 Spondylosis without myelopathy or radiculopathy, lumbar region (principal); G89.29 Other chronic pain; Z79.899 Other long term (current) drug therapy; Z98.890 Other specified postprocedural states
CPT/HCPCS: 64493; 64494 ×2; J2250; J3301; J3010; J2795

== ENCOUNTER → 2023-03-25 | Outpatient (CLI) | payer OTHER ==
[2023-03-25 08:06] VITALS: BP 136/84; PULSE 83; RESP 15; TEMP 98.2
--- NOTE | 2023-03-25 14:43 | P.PAINPG ---
PQRS Measure Charge Sheet Comment: A 47 yr old male with a history of severe and chronic LBP secondary to lumbar DDD and spondylosis with facet arthropathy without myelopathy presents today for evaluation s/p BL MBB L5-L6, L6-S1 #2. Pt states he experienced 40% pain relief x 1 day s/p procedure. Pain level is provoked at 8 /10 in intensity, constant, localized in the lumbar spine, sharp in character without shooting pain. Pain is provoked by over activity. Pain is alleviated with physician guided exercises daily since 2021, chiropractic treatments semi weekly to monthly since Jul 2022, medications, heat, use of a conversion table, massage bed use, reclining, repositioning and rest. Can not afford PT due to $70 per visit costs are too expensive. Oswestry axial pain score of 30. Interventional pain procedures completed include ROSALES L5-L6 x2, TFESI L5-L6 x1, BL MBB L5-L6, L6-S1 x2 Patient is currently on Celebrex, Aleve, Neurontin, Ibu Patient denies any side effects of the medication(s), denies excessive drowsiness or sleepiness, denies suicidal ideation and reports that the current pain medication is helping to control the pain and improve activities of daily living. Patient denies any motor or sensory deficits. Patient denies any fever or night sweats, denies any change in the bowel movements or urination. Physical Examination: -Constitutional: Cooperative. Not in acute distress . - Neurologic: Cranial nerve II to XII intact. No focal neurological deficits. - Psychatric: Alert & oriented x 3. Matching mood & appropriate affect. Judgment and insight intact. - Musculoskeletal: Cervical spine: Muscle bulk/ tone/ strength in the bilateral upper extremities normal Vertebral body tenderness to palpation over Spurling test positive Distraction test positive Facet loading test positive TTP Thoracic spine Muscle bulk / tone/ strength in the bilateral paraspinal muscles normal Vertebral body tender to palpation over Facet loading test positive TTP Lumbar spine: Motor bulk/ tone/ strength lower extremities , thigh and legs : 5/5 Deep tendon reflexes : Normal Knee Jerk. Normal Ankle Jerk . Vertebral body tenderness to palpation over Vallecillo Test positive Lumbar Facet Loading Test positive over BL L5-L6, L6-S1 Straight Leg Raise: positive at 30 degrees right side/ left side Gaenslen's Test positive Sacral spine : Severe tenderness over the Sacroiliac joint: right side / left side Range of motion: Flexion of the lumbar spine <60 degrees Range of motion: Extension of the lumbar spine <20 degrees Gaenslen's Test positive right side / left side David test: positive right side / left side Thigh Thrust Test positive right side / left side Sacral Thrust Test positive right side / left side Assessment and plan: Chronic LBP secondary to lumbar DDD, spondylosis with facet arthropathy without myelopathy Recommendation of SCS trial. Script for behavioral health eval provided Dx G89.4, M54.16. Video viewed. Risks, benefits of procedure discussed and pt verbalized understanding. Admits to anticoagulant use or medical history of diabetes. Protocol for discontinuation/ continuation of medications nahun procedure discussed. Minimal anesthesia provided, if clinically indicated, consisting of Versed and Fentanyl. All questions answered. I have spent less than 30 minutes on patient care today. Dr Valera was sofiya ilable by phone for the evaluation of this patient. The time was used to review the medical records including relevant urine studies and Prescription history (MAPs), review of the available imaging, evaluation and examination of the patient, coordination of care with the medical staff and if applicable referring physicians, as well as creation of the medical record PQRS Narrative: Smoking Status Never smoker Hx Alcohol Use (MH) Yes: 3 DRINKS PER WEEK. Home Medications: Ambulatory Orders Celecoxib [CeleBREX] 200 mg PO BID 01/11/23 Gabapentin [Neurontin] 300 mg PO TID 01/11/23 Ibuprofen [Motrin] 800 mg PO Q8H PRN 02/07/23 Cyclobenzaprine [Flexeril] 10 mg PO DAILY 02/18/23 Controlled Substance Measures - Controlled Substance Measures Is patient prescribed a controlled substance at discharge?: No
== END ==
LOC: PNWHC3 07:30
PROVIDERS: ATTEND Specialist
DX: M51.17 Intervertebral disc disorders with radiculopathy, lumbosacral region (principal); M47.817 Spondylosis without myelopathy or radiculopathy, lumbosacral region; G89.4 Chronic pain syndrome
CPT/HCPCS: 99211

== ENCOUNTER → 2023-07-18 | Outpatient (CLI) | payer OTHER | END | disposition home or self-care (01) | LOC: LABPAT 09:12 | PROVIDERS: ATTEND Orthopaedic Surgery | DX: Z01.812 Encounter for preprocedural laboratory examination (principal); M47.26 Other spondylosis with radiculopathy, lumbar region; M54.50 Low back pain, unspecified; M48.061 Spinal stenosis, lumbar region without neurogenic claudication; Z22.322 Carrier or suspected carrier of Methicillin resistant Staphylococcus aureus | CPT/HCPCS: 36415; 86850; 86900; 86901; 87070 ==

== ENCOUNTER 2023-07-25 11:59 | Day surgery (SDC) | payer OTHER ==
--- NOTE | 2023-07-25 07:42 | P.HPOR ---
History of Present Illness H&P Date: 07/18/23 .D:Date: 07/18/23 : 08:36am .T:Title: [facility] History and Physical Date of :[birth year] [id number]: NKDA Age: 47 year Height: 6' Weight: 269 lbs BP:124/76 BMI: 36.48 kg/m2 Occupation: Web Producer VAS: 5 Hand:Right IMPRESSION: It was my pleasure to have seen and examined Ej. I reviewed the patient's clinical syndrome, physical findings, and imaging studies during the appointment today. It is my impression that the patient has a diagnosis of. 1. L4-5 spondylosis with stenosis 2. Lower extremity radiculopathy, bilateral 3. Low back pain I outlined the natural course history without intervention and various interventional options. I discussed at length with the patient different nonoperative and operative interventions. Nonoperatively the patient is able to try medications therapy injections all of which are symptomatic treatment. The patient has tried a slough of these already and none have seemed to rosi their symptoms. In the surgical arm there is decompression and decompression fusion which are the options for the patient. We did discuss possible Coflex placement as well with the decompression however this does not address the anterior issues the patient is having with a vacuum disc phenomena. We did discuss that fusion will address the anterior as well as the posterior provide stability for this L4 5 segment which is likely unstable due to the vacuum disc as well as restore disc height foraminal height and decompress the nerves. The patient is on board with this and comfortable with this decision that they have made. They are willing to assume the risks of surgery.We discussed all the risks as outlined below. Spine Surgery Risk Review Mr. Cuevas is presenting for evaluation of low back and bilateral lower extremity pain, bilateral lower extremity numbness and tingling. It was my pleasure to have seen and examined Mr. Cuevas. In our visit today we have had a chance to go over subjective complaints, physical examination findings and treatments including the natural course history without intervention and various interventional options. The patients imaging demonstrates: XRay Lumbar Multiview (AP, Lateral, Flexion, Extension) with AP pelvis; 5 views taken at on 08/10/22: - Re-reviewed with the patient in office today. Moderate spondylitic and degenerative changes L4-S1 with flattening of the normal lordosis. Rudimentary L6 vertebral body present. Multilevel diminished disc height. L4-S1 foraminal stenosis. Vertebral body heights are preserved. No acute osseous abnormalities. CT [facility] from02/20[facility]23 of LumbarSpine: - Images reviewed with the patient Of note there is a segmentation difference. The vacuum disc is being labeled L4 L5 L5 is partially fused to S1 at this time. again there is vacuum disc at L4-L5 with spondylosis noted although fairly minimal facet arthrosis there is bilateral foraminal stenosis related to the superior articular facet impinging on the pars interarticularis and nearly the pedicle of L4 bilaterally. There is no acute fracture dislocation otherwise noted.there is L2-3 and L3 4 central stenosis which is moderate. [facility]: - Images re-reviewed with the patient today. Axial images show T12-L1 through the L2-L3 levels to appear within normal l imits. Axial images at L3-L4 level mild mild broad-based posterior disc protrusion mildly effacing the anterior thecal sac. Mild right-sided anterior inferior neural foraminal narrowing. Axial images at L4-L5 levels with mild broad disc bulge minimally effacing the anterior thecal sac. Mild right-sided anterior inferior neural foraminal narrowing. Axial images at L5-L6 level show mild to moderate broad disc bulge mildly effacing the anterior thecal sac and causing moderate right greater than left bilateral neural foraminal narrowing with encroachment on the right L5 nerve seen sagittal image 14 and axial image 8. Axial images of L6-S1 level appear within normal limits. Paraspinal muscle bulk is maintained. IMPRESSION: Multilevel degenerative changes as detailed above. Attention to L5- L6 level where encroachment on the right L5 nerve is identified On physical exam, Mr. Cuevas demonstrates: A continued ache-like pain throughout the low back with an ache-like quality. The patient notes radiating pain down into the bilateral lower extremities, associated wit numbness and tingling. The patient notes that his pain worsens after prolonged activity, which makes it very difficult for him to complete many of his daily tasks. The patient reports experiencing moderate to severe sleep disturbances related to his ongoing pain and associated symptoms. The patient notes that his symptoms have started to become intractable. I have explained to the patient that as their condition progresses it will cause further neurological deficits and eventual paralysis. Based on the patients imaging, physical exam, and the rapid progression and disabling nature of their symptoms, at this time I recommend surgery in the form of a: L4-5 minimally invasive TLIF, Right. I discussed the risk and benefits of this procedure at length with Mr. Cuevas. The patient agreed to considered pursuing the procedure a astrid mentioned. Prior to surgery, she should follow up with her PCP (Cardio, ID, IM etc) for clearance. Questions were invited and answered, and the patient wishes to proceed as outlined below. Currently, I am recommendin.L4-5 minimally invasive TLIF, Right 2.Review of surgical risks and benefits as well as an educational packet on the proposed surgical procedure. Risks: All surgical procedures come with inherent risks, including those related to positioning, anesthesia, intraoperative findings, and postoperative complications. It is important to understand that surgery does not come with any guarantee of a successful outcome as complications and adverse events are always possible. The patient was given a handout in office today discussing the surgical procedure and risks associated with the intervention, both of which were discussed with the patient. These risks include but are not limited to the following: * Experiencing same, different or even worse symptoms in back, neck, arms, or legs compared to before surgery. Requiring further surgery or other forms of treatment presently or at some time in the future at same or other levels of the intended spine surgery. On an extreme but fortunately relatively rare basis severe complication such as blindness, stroke, heart attack, temporary and/or permanent nerve injury, paralysis, coma, or may occur, sometimes without known explanation. Surgical complications may include but are not limited to risk of infection, fluid accumulation in the surgical dissection site, including a seroma or hematoma, that requires additional surgery, wound drainage, bleeding, new numbness or weakness, vision changes/loss, spinal fluid leakage, non-healing and/or infected incision, headaches, difficulty or inability to swallow, hoarseness, hemopneumothorax, pneumothorax, impotence, retrograde ejaculation, vaginal dryness; injury to nerves, spinal cord, blood vessels, lymphatics or other vital organs (i.e., bowel injury, injury to the great vessels); heterotopic bone formation; complications related to the hardware such as screws, rods, cages including misplaced hardware, device failure, instrumentation at the wrong spine level, hardware fracture/breakage, or hardware loosening; vertebral failure of the spinal column above or below the newly placed hardware; retained surgical instrumentations or devices and the need for further surgery. * Medical risks of the planned spine surgery include but are not limited to generalized Infections to the whole body or local areas outside of the surgical site (sepsis), heart attack, bleeding, anaphylaxis, meningitis, seizure, epilepsy, hearing loss, burn orr, laceration of the head or other areas of the body, bruising, hypersensitivity of the skin, bladder over distension; allergic reaction; shoulder injury related to positioning; fat, blood and air clots to other areas of the body like heart, lungs, brain; failure of internal organs such as lungs, kidneys, liver and excessive bleeding. If blood transfusions are necessary, note that transfusions may cause intolerance reactions such as anaphylaxis or other complex reactions. Despite best efforts, the results of spine surgery might not heal in terms of bone, soft tissues such as skin, fascia, ligaments, and joints. Additionally, in order to achieve best possible results, spine surgery may be carried out beyond the initially planned levels and involve decompression, fusion including insertion of hardware at levels other than the original intended area of surgical interest change some portions of the procedure in order to ensure the best possible outcomes. With spine surgery and spinal fusion, there are different off label uses of instrumentation (devices, implants and hardware) as well as biological substances (bone morphogenic proteins, demineralized bone matrix) as well as using extra bone from allograft sources (i.e. cadaver bone) or autograft (iliac crest bone, ribs, or the spine itself). The patient has been given information about these practices and their inherent risks and benefits. [facility] is an educational center that serves as a training facility for neurosurgical and orthopedic RN ADMISSION and Nursing students. Physician assistants are medically trained surgical providers who function in the outpatient, inpatient, and operating room setting under the direct supervision of the attending surgeon. [facility] has multiple operating rooms with single and overlapping rooms running daily. They currently function under the required guidelines as produced by the [facility] with regards to the overlapping rooms and will continue to comply with changes to this policy as they occur. The requirements include and are complied with as follows: (1) the critical portions of the overlapping rooms will not occur at the same time, (2) the attending physician will be physically present during the critical portions of the procedure and immediately available during the entire case, and (3) a back-up attending is designated should the primary attending not be immediately available. The patient has had a chance to review all the listed information, has been given print outs detailing this information, and has had all his/her questions answered to their satisfaction. It was my pleasure to have seen and examined Mr. Cuevas. In our visit today we have had a chance to go over my understanding of our patient's current condition, the natural course history without intervention and various interventional options. Questions were invited and answered, and the patient wishes to proceed as outlined above. I have seen and examined the patient for 25 minutes and we have spent more than 50% of the time in repeat and detailed counseling about the patient's condition, its natural course history with out and as much as can be predicted with surgery and re-review of various surgical treatment options. In conclusion, Mr. Cuevas requested we proceed with the above suggested surgery and are willing to accept risks and limitations of the suggested surgery as nature of the disease process and our best attempts at treatment for the condition. Thank you again for allowing us to be part of your patient's care. Please don't hesitate to contact me if you have any further questions. Follow- up: Post procedure Patient Education: (Informational booklet, instructions, etc) given at today's appointment: Yes .ED:Patient Education: Y Medications Reviewed: YES In our visit today Mr. Cuevas and I have had a chance to go over my understanding of the patient's current condition, the natural course history without intervention and various interventional options. Questions were invited and answered, and the patient wishes to proceed as outlined above. I will be sure to keep you updated afterMr. Cuevas returns here for further follow-up. Thank you again for your referral. Please do not hesitate to contact me if you have any further questions. Signed and authenticated by: [facility] [address], [place] [address] This message is confidential, intended only for the named recipient(s) and may contain information that is privileged or exempt from disclosure under applicable law. If you are not the intended recipient(s), you are notified that the dissemination, distribution or copying of this information is strictly prohibited. If you received this message in error, please notify the sender then delete this message. Patient verbalizes understanding of the information discussed. The above note was initiated by Dinaa Osullivan, physician recording dental ceramist assistant for Dr. Ermias Yang. This note has been reviewed by Dr. Yang, who has made his personal changes and impressions for this document. # SIGNED BY Ermias Yang (GOO)07/21/2023 04:38PM Past Medical History Past Medical History: Osteoarthritis (OA) Additional Past Medical History / Comment(s): hx of bells palsey. BACK PAIN, Hx kidney stones History of Any Multi-Drug Resistant Organisms: None Reported Past Surgical History: Orthopedic Surgery Additional Past Surgical History / Comment(s): L hand, lft knee scoped, PAIN CLINIC PROCEDURES Past Anesthesia/Blood Transfusion Reactions: No Reported Reaction Smoking Status: Never smoker - Past Family History Father Family Medical History: No Reported History Medications and Allergies Home Medications Medication Instructions Recorded Confirmed Type Ibuprofen [Motrin] 800 mg PO Q8H PRN 02/07/23 07/18/23 History Cyclobenzaprine [Flexeril] 10 mg PO DAILY PRN 02/18/23 07/18/23 History oxyCODONE-APAP 10-325MG [Percocet 1 tab PO DIRECTED PRN 07/18/23 07/18/23 History 10-325 mg] Allergies Allergy/AdvReac Type Severity Reaction Status Date / Time No Known Allergies Allergy Verified 07/18/23 09:29 Physical Examination Osteopathic Statement: *. No significant issues noted on an osteopathic structural exam other than those noted in the History and Physical/Consult.
[~2023-07-25 11:59] MED LIST changes: +ACETAMINOPHEN TAB 500 MG TAB PO PRN; +DEXAMETHASONE SOD PHOSPHATE 4 MG/ML 1 ML VIAL IV ONE; +GABAPENTIN 300 MG CAP PO PRN; -LACTATED RINGERS 1,000 ML IV SCH; +LIDOCAINE 1% (10MG/ML) FOR IV START INTRADERMA PRN; +ONDANSETRON 4 MG/2 ML VIAL IVP ONE; +ONDANSETRON 4 MG/2 ML VIAL IVP PRN; +SCOPOLAMINE 1 MG/72 HR PATCH TRANSDERM ONE; +TRANEXAMIC 1,000 MG/100ML-NACL 1,000 MG in SALINE 1 100ML.BAG IVPB PRN; +ceFAZolin 3 GM in SODIUM CHLORIDE 0.9% 100 ML IVPB PRN
[2023-07-25] MEDS: LACTATED RINGERS 1,000 ML IV SCH (12:49)
[2023-07-25] MEDS ORDERED: LACTATED RINGERS 1,000 ML IV ONE ×2 (12:55→16:15)
[2023-07-25] MEDS ORDERED: MIDAZOLAM 2 MG/2 ML VIAL ONE (14:30)
[2023-07-25] MEDS ORDERED: LIDOCAINE 1% INJ 10MG/ML (20 ML MDV) ONE (14:30)
[2023-07-25] MEDS ORDERED: ROCURONIUM 10 MG/ML (5 ML VIAL) IV ONE (14:30)
[2023-07-25] MEDS ORDERED: fentaNYL (PF) 50 MCG/ML 2 ML AMP ONE (14:30)
[2023-07-25] MEDS ORDERED: PROPOFOL 10 MG/ML 20 ML VIAL IV ONE (14:30)
[2023-07-25] MEDS ORDERED: HYDROmorphone (PF) 1 MG/ML ONE (14:30)
[2023-07-25] MEDS ORDERED: NEOSTIGMINE 1 MG/ML 10 ML VIAL ONE (14:30)
[2023-07-25] MEDS ORDERED: KETAMINE HCL IN 0.9 % NACL 50 MG/5 ML SYRINGE ONE (14:30)
[2023-07-25] MEDS ORDERED: GLYCOPYRROLATE 0.2 MG/ML 2 ML VIAL ONE (14:30)
[2023-07-25] MEDS ORDERED: SUCCINYLCHOLINE CHLORIDE 200 MG/10 ML VIAL IV ONE (14:30)
[2023-07-25] MEDS ORDERED: TRANEXAMIC 1,000 MG/100ML-NACL PREMIX BAG ONE (14:30)
[2023-07-25] MEDS ORDERED: THROMBIN (BOVINE) 5,000 UNIT VIAL TOPICAL ONE (15:04)
[2023-07-25] MEDS ORDERED: GELATIN SPONGE,ABSORB (SMALL) 1 EACH SPONGE TOPICAL ONE (15:04)
[2023-07-25] MEDS ORDERED: BUPIVACAINE (PF) 0.5% 30 ML VIAL SQ ONE ×2 (15:15→16:30)
[2023-07-25] MEDS ORDERED: LIDOCAINE 2%-EPI 1:100,000 20 ML VIAL SQ ONE ×2 (15:15→16:30)
[2023-07-25] MEDS ORDERED: MAGNESIUM HYDROXIDE 2,400 MG/30 ML CUP PO PRN (16:50)
[2023-07-25] MEDS ORDERED: CYCLOBENZAPRINE 5 MG TAB PO PRN (16:50)
[2023-07-25] MEDS ORDERED: HYDROmorphone 0.5 MG/0.5 ML SYRINGE IVP PRN (16:50)
[2023-07-25] MEDS ORDERED: HYDROmorphone 1 MG/ML 1 ML SYRINGE IVP PRN (16:50)
[2023-07-25] MEDS ORDERED: SENNOSIDES-DOCUSATE SODIUM 1 EACH TAB PO PRN (16:50)
--- NOTE | 2023-07-25 16:51 | P.OP ---
Date of Procedure: 07/25/23 Anesthesia: MADI Surgeon: Ermias Yang Readers' Advisory Service Librarian #1: Trevor Monroy Estimated Blood Loss (ml): 50 Pathology: none sent Condition: stable Disposition: PACU Indications for Procedure: Mr. Cuevas is presenting for evaluation of low back and bilateral lower extremity pain, bilateral lower extremity numbness and tingling. It was my pleasure to have seen and examined Mr. Cuevas. In our visit today we have had a chance to go over subjective complaints, physical examination findings and treatments including the natural course history without intervention and various interventional options. The patients imaging demonstrates: XRay Lumbar Multiview (AP, Lateral, Flexion, Extension) with AP pelvis; 5 views taken at on 08/10/22: - Re-reviewed with the patient in office today. Moderate spondylitic and degenerative changes L4-S1 with flattening of the normal lordosis. Rudimentary L6 vertebral body present. Multilevel diminished disc height. L4-S1 foraminal stenosis. Vertebral body heights are preserved. No acute osseous abnormalities. CT [facility]completed at [facility] from02/20/23 of LumbarSpine: - Images reviewed with the patient Of note there is a segmentation difference. The vacuum disc is being labeled L4 L5 L5 is partially fused to S1 at this time. again there is vacuum disc at L4-L5 with spondylosis noted although fairly minimal facet arthrosis there is bilateral foraminal stenosis related to the superior articular facet impinging on the pars interarticularis and nearly the pedicle of L4 bilaterally. There is no acute fracture dislocation otherwise noted.there is L2-3 and L3 4 central stenosis which is moderate. MRI scancompleted [facility] from 08/06/22 of LumbarSpine: - Images re-reviewed with the patient today. Axial images show T12-L1 through the L2-L3 levels to appear within normal limits. Axial images at L3-L4 level mild mild broad-based posterior disc protrusion mildly effacing the anterior thecal sac. Mild right-sided anterior inferior neural foraminal narrowing. Axial images at L4-L5 levels with mild broad disc bulge minimally effacing the anterior thecal sac. Mild right-sided anterior inferior neural foraminal narrowing. Axial images at L5-L6 level show mild to moderate broad disc bulge mildly effacing the anterior thecal sac and causing moderate right greater than left bilateral neural foraminal narrowing with encroachment on the right L5 nerve seen sagittal image 14 and axial image 8. Axial images of L6-S1 level appear within normal limits. Paraspinal muscle bulk is maintained. IMPRESSION: Multilevel degenerative changes as detailed above. Attention to L5- L6 level where encroachment on the right L5 nerve is identified On physical exam, Mr. Cuevas demonstrates: A continued ache-like pain throughout the low back with an ache-like quality. The patient notes radiating pain down into the bilateral lower extremities, associated wit numbness and tingling. The patient notes that his pain worsens after prolonged activity, which makes it very difficult for him to complete many of his daily tasks. The patient reports experiencing moderate to severe sleep disturbances related to his ongoing pain and associated symptoms. The patient notes that his symptoms have started to become intractable. I have explained to the patient that as their condition progresses it will cause further neurological deficits and eventual paralysis. Based on the patients imaging, physical exam, and the rapid progression and disabling nature of their symptoms, at this time I recommend surgery in the form of a: L4-5 minimally invasive TLIF, Right. I discussed the risk and benefits of this procedure at length with Mr. Cuevas. The patient agreed to considered pursuing the procedure above mentioned. Prior to surgery, she should follow up with her PCP (Cardio, ID, IM etc) for clearance. Questions were invited and answered, and the patient wishes to proceed as outlined below. Currently, I am recommendin.L4-5 minimally invasive TLIF, Right
[2023-07-25] MEDS: HYDROmorphone 0.5 MG/0.5 ML SYRINGE IVP PRN ×4 (17:03→17:30)
[2023-07-25] MEDS: ACETAMINOPHEN TAB 325 MG TAB PO SCH ×2 (18:32→23:06)
[2023-07-25] MEDS: oxyCODONE-APAP 10-325MG 1 EACH TAB PO PRN (19:54)
[2023-07-25] MEDS: GABAPENTIN 300 MG CAP PO SCH (19:57)
--- NOTE | 2023-07-25 21:53 | P.CONS ---
History of Present Illness - Reason for Consult Consult date: 07/25/23 - History of Present Illness Patient is a 47-year-old male with PMH of lower back pain and history of kidney stones who was admitted for an elective L4-5 lumbar fusion which the patient underwent earlier today and was seen postoperatively on the surgical unit. He reported ongoing 7 out of 10 lower back pain, worsened with movement. Denied experiencing lower extremity numbness, weakness, or tingling. He also denies ex periencing chest discomfort, shortness of , fever, chills, cough, nausea, vomiting, sore throat, abdominal pain, diarrhea. Reports that he only takes Percocet and Motrin at home along with as needed Flexeril. Review of systems: Pertinent positives and negatives as discussed in HPI, a complete review of systems was performed and all other systems are negative. Physical examination: Vital signs reviewed General: non toxic, no distress, appears at stated age, obese Derm: no unusual rashes/lesions, warm Head: atraumatic, normocephalic, symmetric Eyes: EOMI, no lid lag, anicteric sclera, pupils equal round reactive to light ENT: Nose and ears atraumatic Neck: No cervical lymphadenopathy, trachea midline, supple Mouth: no lip lesion, mucus membranes moist Cardiovascular: S1S2 reg, no murmur, positive dorsalis pedis pulse bilateral, no edema Lungs: CTA bilateral, no rhonchi, no rales, no accessory muscle use Abdominal: soft, nontender to palpation, no guarding Ext: muscle strength 5 out of 5 in all 4 extremities grossly, no gross muscle atrophy, no contractures, lumbar dressings clean and dry Neuro: CN II-XI grossly intact, no gross focal neuro deficits Psych: Alert, oriented, appropriate affect Assessment: Postoperative pain, status post TLIF Data Review: Pending Plan: Defer management of pain control and DVT prophylaxis to the primary surgery service Patient currently on Dilaudid and Percocet when necessary Past Medical History Past Medical History: Osteoarthritis (OA) Additional Past Medical History / Comment(s): hx of bells palsey. BACK PAIN, Hx kidney stones History of Any Multi-Drug Resistant Organisms: None Reported Past Surgical History: Orthopedic Surgery Additional Past Surgical History / Comment(s): L hand, lft knee scoped, PAIN CLINIC PROCEDURES Past Anesthesia/Blood Transfusion Reactions: No Reported Reaction Past Psychological History: No Psychological Hx Reported Smoking Status: Never smoker Past Alcohol Use History: Occasional Additional Past Alcohol Use History / Comment(s): a few beers every weekend Past Drug Use History: None Reported - Past Family History Father Family Medical History: No Reported History Medications and Allergies Home Medications Medication Instructions Recorded Confirmed Type Ibuprofen [Motrin] 800 mg PO Q8H PRN 02/07/23 07/18/23 History Cyclobenzaprine [Flexeril] 10 mg PO DAILY PRN 02/18/23 07/18/23 History oxyCODONE-APAP 10-325MG [Percocet 1 tab PO DIRECTED PRN 07/18/23 07/18/23 History 10-325 mg] Allergies Allergy/AdvReac Type Severity Reaction Status Date / Time No Known Allergies Allergy Verified 07/18/23 09:29 Physical Exam Vitals: Vital Signs Temp Pulse Resp BP Pulse Ox 07/25/23 20:00 98.5 F 99 16 124/84 94 L 07/25/23 17:40 105 H 16 154/87 97 07/25/23 17:25 104 H 16 154/89 94 L 07/25/23 17:10 96 16 159/82 96 07/25/23 16:55 98 F 99 16 176/88 97 07/25/23 12:49 97.3 F L 94 16 139/84 96 Intake and Output 07/25/23 07/25/23 07/25/23 06:59 14:59 22:59 Intake Total 1999 500 Output Total 300 Balance 2000 200 Intake: IV 2000 500 Oral 0 Output: Urine 250 Estimated Blood Loss 50 Other: Voiding Method Indwelling Catheter Weight 120.5 kg 120.5 kg
[2023-07-25] MEDS: ceFAZolin 3 GM in SODIUM CHLORIDE 0.9% 100 ML IVPB SCH (23:06)
--- NOTE | 2023-07-25 23:32 | FL ---
EXAMINATION TYPE: FL guidance operating room, XR lumbar spine 2 or 3V Intraoperative/procedural fluor oscopic services were provided. Total fluoroscopy time is 42 seconds with a total of 11 submitted kandi ges to PACS. Please see the operative/procedural note for further details. DAP: 4608.23 cGycm2
[2023-07-26] MEDS: ACETAMINOPHEN TAB 325 MG TAB PO SCH ×2 (05:52→13:27)
[2023-07-26 07:37] VITALS: BP 121/80; PULSE 93; RESP 18; TEMP 98.4
--- NOTE | 2023-07-26 08:33 | CT ---
EXAMINATION TYPE: CT lumbar spine wo con DATE OF EXAM: 07/26/2023 7:58 AM COMPARISON: Prior study February 20, 2023 HISTORY: S/P L4-L5 MIS PLIF CT DLP: 1106.4 mGycm Automated exposure control for dose reduction was used. Unenhanced CT of the lumbar spine was performed. Bone and soft tissue window settings are submitted as well as coronal and sagittal reconstructions. There are 5 lumbar type vertebra redemonstrated. There is new posterior intrapedicular rods and screw s and metallic disc material at L4-L5 level. Hardware position appears satisfactory. There is slight grade 1 retrolisthesis L3 on L4 redemonstrated. Vertebral body and disc space heights above and below surgical levels are stable and satisfactory. Spinal canal is grossly preserved. There is new ill-def ined fluid and air in the deep subcutaneous posterior soft tissue consistent with recent surgery is n oted. Some vertical oriented skin nathalia are also present. Paraspinal muscle bulk is maintained. IMPRESSION: New postsurgical change at L4-L5 level. Stable and satisfactory alignment. Hardware posit ion grossly satisfactory.
[2023-07-26] MEDS: GABAPENTIN 300 MG CAP PO SCH (09:09)
[2023-07-26] MEDS: ceFAZolin 3 GM in SODIUM CHLORIDE 0.9% 100 ML IVPB SCH (09:10)
[2023-07-26] MEDS: LACTATED RINGERS 1,000 ML IV SCH (09:11)
[2023-07-26 09:56] LABS: Basophils % (A) 0 %; Eosinophils % (A) 0 %; HCT 41.7 % (39.0-53.0); HGB 14.2 gm/dL (13.0-17.5); Lymphocytes % (A) 13 %; MCH 32.2 pg (25.0-35.0); MCV 94.5 fL (80.0-100.0); Mean Platelet Volume 8.8; Monocytes # (A) 0.4 k/uL (0-1.0); Monocytes % (A) 5 %; Neutrophils # (A) 6.5 k/uL (1.3-7.7); Neutrophils % (A) 82 %; Platelet Count 167 k/uL (150-450); RBC 4.41 m/uL (4.30-5.90); RDW 12.1 % (11.5-15.5); WBC 7.9 k/uL (3.8-10.6)
[2023-07-26 10:26] LABS: African American GFR (CKD) >90 (>60 ml/min/1.73 sqM); Anion Gap 7 mmol/L; Blood Urea Nitrogen 16 mg/dL (9-20); Calcium 8.4 mg/dL (8.4-10.2); Carbon Dioxide 23 mmol/L (22-30); Chloride 105 mmol/L (98-107); Glucose 153 mg/dL (74-99); Non-African American GFR(CKD) >90 (>60 ml/min/1.73 sqM); Potassium 4.3 mmol/L (3.5-5.1); Sodium 135 mmol/L (137-145)
--- NOTE | 2023-07-26 10:47 | P.OP ---
Date of Procedure: 07/25/23 Preoperative Diagnosis: Current Active Problems Muscle weakness of lower extremity (Acute) Foraminal stenosis of lumbar region (Acute) Other spondylosis with radiculopathy, lumbosacral region (Acute) Spondylolisthesis at L4-L5 level (Acute) Postoperative Diagnosis: Current Active Problems Muscle weakness of lower extremity (Acute) Foraminal stenosis of lumbar region (Acute) Other spondylosis with radiculopathy, lumbosacral region (Acute) Spondylolisthesis at L4-L5 level (Acute) Procedure(s) Performed: L4-5 POSTERIOLATERAL AND INTERBODY FUSION L4-5 INSTRUMENTATION L4-5 LAMINOFORAMINOTOMY FOR DECOMPRESSION AND CAGE PLACEMENT L4-5 INTERBODY CAGE PLACEMENT USE OF [place] NAVIGATION FOR SCREW PLACEMENT 80943, 40220, 44775, 15311, 32188 USE OF IONM ALL SCREWS TESTING > 20mA USE OF IO MICROSCOPE Implants: -JEREMY EVEREST SCREWS AND RODS -GLOBUS SABLE CAGE 10 MM 9-16 8 DEG -MAGNATOS, ALLOCELL, ARTHROCELL, IFACTOR, AUTOGRAFT Anesthesia: GETA Surgeon: Ermias Yang Service Porter #1: Trevor Monroy (WAS PRESENT AND ASSISTED WITH ALL ASPECTS OF THE CASE FROM POSITION TO CLOSURE) Estimated Blood Loss (ml): 50 IV fluids (ml): 1,200 Urine output (ml): 350 Pathology: none sent Condition: stable Disposition: PACU Indications for Procedure: Mr. Cuevas is presenting for evaluation of low back and bilateral lower extremity pain, bilateral lower extremity numbness and tingling. It was my pleasure to have seen and examined Mr. Cuevas. In our visit today we have had a chance to go over subjective complaints, physical examination findings and treatments including the natural course history without intervention and various interventional options. The patients imaging demonstrates: XRay Lumbar Multiview (AP, Lateral, Flexion, Extension) with AP pelvis; 5 views taken at on 08/10/22: - Re-reviewed with the patient in office today. Moderate spondylitic and degenerative changes L4-S1 with flattening of the normal lordosis. Rudimentary L6 vertebral body present. Multilevel diminished disc height. L4-S1 foraminal stenosis. Vertebral body heights are preserved. No acute osseous abnormalities. CT [facility]completed at [facility] from02/20/23 of LumbarSpine: - Images reviewed with the patient Of note there is a segmentation difference. The vacuum disc is being labeled L4 L5 L5 is partially fused to S1 at this time. again there is vacuum disc at L4-L5 with spondylosis noted although fairly minimal facet arthrosis there is bilateral foraminal stenosis related to the superior articular facet impinging on the pars interarticularis and nearly the pedicle of L4 bilaterally. There is no acute fracture dislocation otherwise noted.there is L2-3 and L3 4 central stenosis which is moderate. [facility] 08[facility]22 of LumbarSpine: - Images re-reviewed with the patient today. Axial images show T12-L1 through the L2-L3 levels to appear within normal limits. Axial images at L3-L4 level mild mild broad-based posterior disc protrusion mildly effacing the anterior thecal sac. Mild right-sided anterior inferior neural foraminal narrowing. Axial images at L4-L5 levels with mild broad disc bulge minimally effacing the anterior thecal sac. Mild right-sided anterior inferior neural foraminal narrowing. Axial images at L5-L6 level show mild to moderate broad disc bulge mildly effacing the anterior thecal sac and causing moderate right greater than left bilateral neural foraminal narrowing with encroachment on the right L5 nerve seen sagittal image 14 and axial image 8. Axial images of L6-S1 level appear within normal limits. Paraspinal muscle bulk is maintained. IMPRESSION: Multilevel degenerative changes as detailed above. Attention to L5- L6 level where encroachment on the right L5 nerve is identified On physical exam, Mr. Cuevas demonstrates: A continued ache-like pain throughout the low back with an ache-like quality. The patient notes radiating pain down into the bilateral lower extremities, associated wit numbness and tingling. The patient notes that his pain worsens after prolonged activity, which makes it very difficult for him to complete many of his daily tasks. The patient reports experiencing moderate to severe sleep disturbances related to his ongoing pain and associated symptoms. The patient notes that his symptoms have started to become intractable. I have explained to the patient that as their condition progresses it will cause further neurological deficits and eventual paralysis. Based on the patients imaging, physical exam, and the rapid progression and disabling nature of their symptoms, at this time I recommend surgery in the form of a: L4-5 minimally invasive TLIF, Right. I discussed the risk and benefits of this procedure at length with Mr. Cuevas. The patient agreed to considered pursuing the procedure above mentioned. Prior to surgery, she should follow up with her PCP (Cardio, ID, IM etc) for clearance. Questions were invited and answered, and the patient wishes to proceed as outlined below. Currently, I am recommendin.L4-5 minimally invasive TLIF, Right Description of Procedure: L4-L5 MIS TLIF CASSIE The patient was seen and examined in the preoperative area. All preoperative protocols were followed. Informed consent was obtained, risks and benefits of the procedure were discussed at length. Risks including bleeding infection damage to the surrounding tissue and risk of reoperation were discussed with the patient. Risk of anesthesia up to and including was discussed with the patient. These are outlined in the risk review. They were willing to accept these risks and all the risks of surgery. The patient was given a weight-based dose of antibiotics in the form of 2 g Ancef. The patient was seen and evaluated by the anesthesia team who deemed them fit for surgery. The site was marked, the patient was willing to proceed with the procedure. The patient was transferred to the operative suite by the Department of anesthesia. They were then drifted off to sleep by the department anesthesia and GETA was performed. The patient tolerated this well. Mota catheter was placed by nursing staff, a-traumatically. Once confirmation of lines and ventilation the patient was transferred to a prone Jose Armando table very carefully. All bony prominences including wrists, elbows, axilla, chest, hips, and thighs, and feet were padded very well. Special attention was paid to the genitalia, and these were padded accordingly. SCDs were placed on bilateral lower extremities and were connected. Arms were well padded and placed on arm boards up and out in the 90/90 position. Once in position, again we confirmed good ventilation capabilities and that lines were running appropriately. The patients Lumbar spine was then exposed. 1010s were placed outlining the incision site. Standard alcohol was used to clean the incision site and allowed to dry. C-arm was used to needle localize the pedicles at L4-5 and bio-ga the patient and confirm level for incision which was marked with a skin marker. Operative briefing was performed with all teams and everyone in agreement to proceed. The patient was then prepped and draped in a normal sterile fashion. Timeout was then performed, and all parties agreed with the procedure to be performed. Skin nicks made and pins placed in the PSIS on the right for the [place] tracker. 3D [place]heim spin was then registered and confirmed to be accurate. Navigated jamshidi and drill-guide were then used to target pedicles bilaterally at L4 and L5. Once accessed, wires were placed in their void. This was repeated at L5 bilaterally. Skin incision was then made along these wires and a perfect scalpel was used over the wire to create a path and measure screw length. Screws were then placed over wires on the contralateral side. Once the screw was at the back of the body wire was removed. The screws were confirmed to be in good position on AP and lateral. We then tested screws and they all tested above 20 mA. Attention was then turned to interbody fusion at L4-5. Tubular retractor system was placed at the interspace of L4-5 using a biplanar c arm. Once in position and dilated up to 26mm tube it was locked to the bed and confirmed in good position. Microscope was then brought in for visualization. Limited myomectomy was performed and laminectomy, complete facetectomy and foraminotomy performed at L4-5 using high speed scott and Kerrison rongeur. The ligamentum was removed and the dural sac decompressed. Exiting and traversing roots visualized and decompressed. Neural elements were then protected, and disc space accessed with an osteotome. Sequential shaving then done under lateral imaging and complete discectomy performed using dana, pituitary and curettes. Once good bleeding endplates accomplished and good height taoism with trials, a combination of autograft, allograft and synthetic placed anterior in the disc space. The cage was then selected and impacted into place under lateral imaging. The cage was then expanded restoring height, lordosis and alignment. The cage was backfilled with bone graft through a funnel. The mushroom growing supervisor was removed and the area inspected. Good cage placement, stable cage and no injuries. Area was irrigated copiously, and meticulous hemostasis achieved. The tubular retractor was then removed under direct visualization. Screws were then selected and placed over the previously placed wires on the ipsilateral side. This was done in the fashion described above. Screws were then tested, and all tested above 20 mA. Shells were then placed on the tabs. Paul length was then measured, and rods selected. They were then placed through the MIS tabs, subfascial and locked into L5 bilateral and sequentially reduced into L4 for listhesis reduction. These were then locked into place with set screws and finally tightened. Paul holders removed and images taken showing good placement of rods, good lordosis and taoism of height. Tabs were broken off. Wounds were then copiously irrigated with NSS. Scott used for TP decortication and mixture of MagnatOs, allograft and autograft packed posterolateral. Fascia was then closed with 0 Vircyl on a Scorpion suture passer for MIS closure. Deep subq closed with 0 Vicryl. Superficial subq closed with 2-0 Vicryl and skin with nathalia. Wound edges approximated very well. Wound was then cleaned with alcohol and dried. Wounds dressed in Optifoam dressings. The patient was then transferred off the table back to their hospital bed a- traumatically. They were extubated by the department of anesthesia. They were then transferred to PACU in stable condition having tolerated the procedure with no complications.
--- NOTE | 2023-07-26 12:04 | P.PN ---
Subjective Progress Note Date: 07/26/23 47-year-old male with PMH of lower back pain and history of kidney stones who was admitted for an elective L4-5 lumbar fusion. He underwent surgery with Dr. Yang on 07/25. [facility] consulted for medical management of this patient. 07/26 Patient was seen and examined. No acute events overnight. He reports moderate lumbar pain. Passing gas. Has not urinated yet. CBC unremarkable. BMP Na 135, glu 153. Lumbar spine CT shows post surgical changes with satisfactory alignment. General: non toxic, no distress, appears at stated age Derm: warm, dry Head: atraumatic, normocephalic, symmetric Eyes: EOMI, no lid lag, anicteric sclera Cardiovascular: S1S2 reg, no murmur Lungs: CTA bilateral, no rhonchi, no rales , no accessory muscle use Ext: no gross muscle atrophy, no edema, no contractures Neuro: no focal neuro deficits Psych: Alert, oriented, appropriate affect Based on my assessment of this patient, this patient meets a moderate complexity level of care. Patient is status post L4L5 lumbar fusion POD 1. Patient encouraged to ambulate. Hopefully he can urinate on his own. Defer management of pain control and DVT prophylaxis to the primary surgery service. Patient currently on Dilaudid and Percocet when necessary CODE STATUS: FULL CODE. DVT Prophylaxis: SCDs GI Prophylaxis: Designated medical POA if patient is not able to make medical decisions for themselves: I have reviewed the following call center support consultant notes: I have reviewed the results of the following tests: CBC, BMP, L spine CT I have ordered the following tests: I have discussed the care of this patient with the following independent historian: Discussed with at bedside. I have independently interpreted the following test below: I have discussed the management of this patient with the following physician: Objective - Vital Signs Vital signs: Vital Signs Temp 98.4 F 07/26/23 07:00 Pulse 93 07/26/23 07:00 Resp 18 07/26/23 07:00 BP 121/80 07/26/23 07:00 Pulse Ox 95 07/26/23 07:00 FiO2 Intake & Output 07/25/23 07/26/23 07/26/23 18:59 06:59 18:59 Intake Total 2500 0 Output Total 527 631 4269 Balance 2200 -700 -1200 Weight 120.5 kg 120.5 kg Intake: IV 2500 Oral 0 Output: Urine 149 302 [id number] Uretheral (Mota) 1200 Estimated Blood Loss 50 Other: Voiding Method Indwelling Catheter Indwelling Catheter - Labs CBC & Chem 7: 07/26/23 05:47 07/26/23 05:47 Labs: Abnormal Lab Results - Last 24 Hours (Table) 07/26/23 Range/Units 05:47 Sodium 135 L (137-145) mmol/L Glucose 153 H (74-99) mg/dL
--- NOTE | 2023-07-26 13:46 | P.DS ---
Providers Expected date of discharge: 07/26/23 Attending physician: Ermias Yang DO Consults: 07/25/23 16:50 Consult Physician Routine Consulting Provider: Facundo Crowder Consult Reason/Comments: medical management s/p L4-L5 MIS PLIF Do you want consulting provider notified?: Yes Primary care physician: Stated None Hospital Course: Date of admission: 07/25/2023 Date of discharge: 07/26/2023 Admission diagnosis: L4-L5 spondylolisthesis; low back pain; bilateral lower extremity radiculopathy Discharge diagnosis: Same Attending physician: Dr. Yang Surgical procedures: L4-L5 MIS PLIF Brief history: Patient is a 47-year-old male with a history of L4-L5 spondylolisthesis on the low back pain. At this point patient has failed conservative treatment measures and has opted to proceed with a elective L4-L5 MIS PLIF. Hospital course: Details of patient's surgery can be found in operative report. Patient tolerated the procedure well and was subsequently transported to orthopedic floor. Patient's orthopeidc and medical care was provided daily. Patient had daily laboratory tests performed for evaluation of overall blood counts. Patient had daily physical therapy to include strengthening range of motion as well as education with walker ambulation. Patient was noted to have a relatively uneventful postoperative course. Patient reported satisfactory pain control with oral pain medications by postoperative day 1. Patient showed satisfactory progress with physical therapy. Patient moved steadily through the program and had no difficulty meeting the goals by postoperative day 1. Given patient's otherwise satisfactory course and having met physical therapy goals, plan is to discharge patient home on postoperative day 1. Discharge condition/disposition: Patient will be discharged home in stable condition. Discharge medications: Instructions are given on resumption of patient's normal daily medications per primary care recommendation, in addition patient will be prescribed gabapentin; Flexeril; senna; Duricef; Percocet. Spine Discharge and Recovery Instructions Date of Surgery: 07/25/2023 Diagnosis: Low back pain and bilateral lower extremity radiculopathy; L4-L5 spondylolisthesis Procedure: L4-L5 MIS PLIF Medications: See medication list All medication refills should be obtained through your primary care doctor or your clinic spine surgeon. Please discuss prescription refills at your follow up appointment. Do not call the hospital for medication refills. Dressing: Leave your dressing in place for a total of 5 days post operatively. Then you may remove your dressing and leave open to air. Keep the area clean and if not able to keep area clean, then cover with sterile gauze and tape. Showering: You may shower 3 days after your procedure allowing soap and water to run over incision. Do not scrub. Do not soak. Blot dry. Follow up: Please confirm a follow up appointment with your surgeon 3 weeks post operatively. Please make an appointment to follow up with your PCP in 1-2 weeks after surgery for evaluation 3 phase, 3-week plan POST OP WEEKS 1-3 1. Lifting/carrying/pushing/pulling limited to less than 5 pounds. 2. Do not sit for longer than 15 minutes at one time. Get up and walk around. Prolonged sitting is NOT advised. If you lay down, see if you can tolerate laying down on you front (belly side) 3. Walk for periods of 15 minutes = 1 mile but no longer; do it multiple times times each day. 4. Ice your low back after activity. POST OP WEEKS 3-6 1. Lifting limited to less than 20 pounds. 2. Do not sit for longer than 30 minutes at a time. Frequently change positions. Use a sit-to stand workstation or take frequent breaks from sitting if you have returned to work. 3. Walk for 30 minutes each day. If possible, do these three or more times a day POST OP WEEKS 6+ At your 6-week appointment we will give you a physical therapy referral to focus on a core stabilization and strengthening program. You should also work on leg & buttock strengthening, hamstring & quadriceps stretching, and continue a low impact aerobic activity program such as swimming, walking, or riding a stationary bicycle. During the initial 6 weeks after your surgery, you are at the highest risk of re-injuring your spine. You should generally avoid BLTs (bending, lifting and twisting combination motions) and follow the above guidelines to reduce the chance of reinjury. You can anticipate post op appointments in our office at approximately 3 weeks and 6 weeks after your surgery. INCISION CARE: If your incision is not draining you do NOT need to cover it with a dressing. Keep your incision clean, dry and intact. In most cases, we apply skin glue, nathalia or sutures to the incision at the time of surgery. This will be like a crust or have the appearance of a scab and will fall off in time on its own. The stitches or nathalia need to be removed at 3 weeks post op appointment. You may begin to shower 3 days after surgery (this allows the glue to leal well). However, please avoid scrubbing the incision site or peeling off any of the skin glue. This will ensure optimal healing of your incision. Also, during this time avoid soaking the incision area in water - this includes swimming pools, hot tubs or baths. No ointments, lotions or oils on the incision until your surgeon allows. Leave nathalia, sutures or glue in place. Neurological dysfunction that comes on suddenly can also be a sign of a stroke. Below some common symptoms of a stroke are listed: B - balance difficulty such as sudden onset walking or leaning to one side - NEW E - eye problem such as sudden double vision or trouble seeing on one side - NEW F - Facial weakness or numbness on one side - NEW A - Arm or leg weakness or numbness on one side - NEW S - Slurred speech or difficulty with word finding - NEW T - Time is BRAIN! Call 911 as soon as you recognize these symptoms Diet: Consume a regular diet rich in vegetables and lean protein such as chicken or fish. You should consume in a ratio of approximately 20% fats|40% carbohydrates|40%protein. Vegetables, sweet potatoes, brown rice or quinoa are examples of good carbohydrates. Chips, white bread, cookies and sweets/sugar are examples of bad carbohydrates. Limit your bad carbs, go wild with good carbs. "Life's Simple 7" Guidelines as per [place] [employer] These will help you reclaim your life after surgery and shear grinder operator helper in your recovery, keeping in mind your restrictions. (1) Get Active. Physical activity can help people lose weight, control high blood pressure and cholesterol, feel emotionally better, and sleep better. (2) Control Cholesterol. Avoid a diet high in saturated fat, trans fat, & c holesterol. Limit whole milk & cream, ice cream, butter, egg yolks, processed meats (like sausage and hot dogs), and fatty meats. Choose healthy foods that are low in saturated fat, trans fat and cholesterol which include: Fruits and vegetables, fiber rich grain products (like whole grain pasta and brown rice), lean meat such as chicken, fish, nuts, seeds, and legumes. (3) Eat Better. Eat small portions. Shop at the grocery with a list and do not stray from it. Tips for a healthy diet include: Limit sodium intake to less than 1500mg daily, avoid prepackaged, processed, and fast foods, choose a diet rich in fruits, vegetables, and whole grain, high fiber foods, and limit saturated & cholesterol in your diet. (4) Manage Blood Pressure. If you have high blood pressure, you should have a cuff at home so that you can check your blood pressure regularly. Be sure you have a good cuff. An arm one is generally better than a wrist one. Bring the cuff to a doctor's appointment to validate that the measurements that your cuff are taking are accurate. Take your blood pressure twice daily when you are sitting down and relaxing. Record the numbers in a log and bring this log with you to your doctors' appointments. (5) Lose Weight if your BMI is above 25. A healthy BMI is between 19-25. To calculate Your BMI, you may use a Standard BMI Calculator on the NIH BMI we bsite: <www.nhlbi.nih.gov/guidelines/obesity/BMI/bmicalc.htm>. Weigh oneself daily. If you are overweight, set a goal to lose weight. A pound a week loss if needed is a good target. (6) Reduce Blood Sugar. Limit foods and liquids with "added sugars." (Added sugars include sucrose, fructose, glucose, maltose, dextrose, high fructose corn syrup, corn syrup, concentrated fruit juice and honey). (7) Stop Smoking. If you smoke, quitting smoking is one of the best things that you can do for your health. Smoking increases your risk of heart attack, stroke, and peripheral vascular disease, which is a build-up of plaque in your arteries. Please discard all the cigarettes and lighters in your house. Have a plan for what you will do when you have the urge to smoke. Direct and second- hand smoke shortens your life as well as the lives of your family, friends and others around you. For your health and the health of those around you, please consider quitting! Proper Bending Body Mechanics: Maintain a wide stance with one foot slightly in front of the other. Keep your back straight. Bend utilizing the strength in your hips and knees. Do not bend at the waist. Maintain the lifted object at your waist-level close to your body. Avoid lifting weight that causes immediately pain or pain anywhere in the body afterwards. Smoking/Nicotine If there was ever one thing that you could do to increase your overall health, decrease your risk of cardiovascular problems by about 39% the second you make the choice, it is to STOP SMOKING. Your body's most instant gratification is the second you stop smoking. We have all heard the studies, read the articles but it is true, smoking is extremely bad for your overall health, and moreover it is detrimental to your bone health. Nicotine, IN ANY FORM, kills bone cells, prevents your body from healing fractures, and significantly prolongs healing after surgery. In spine surgery specifically, it increases your risk of not healing your bones to create a fusion and increases your risk of having a revision surgery due to this up to 60%. I know it is hard. I know it feels impossible. But there are ways. Take control of your life. We are here to help you through it. And when you are ready, ask us and we can direct you to help if you desire. Use the START Plan to Quit Smoking (please visit the Helpguide.org website listed below for more information): S = Set a quit date. Choose a date within the next 2 weeks, so you have enough time to prepare without losing your motivation to quit. If you mainly smoke at work, quit on the weekend, so you have a few days to adjust to the change. T = Tell family, friends, and co-workers that you plan to quit. Let your friends and family in on your plan to quit smoking and tell them you need their support and encouragement to stop. Look for a quit wilbert who wants to stop smoking as well. You can help each other get through the rough times. A = Anticipate and plan for the challenges you'll face while quitting. Most people who begin smoking again do so within the first 3 months. You can help yourself make it through by preparing ahead for common challenges, such as nicotine withdrawal and cigarette cravings. R = Remove cigarettes and other tobacco products from your home, car, and work. Throw away all your cigarettes (no emergency pack!), lighters, ashtrays, and matches. Wash your clothes and freshen up anything that smells like smoke. Shampoo your car, clean your drapes and carpet, and steam your furniture. T = Talk to your doctor about getting help to quit. Your doctor can prescribe medication to help with withdrawal and suggest other alternatives. If you can't see a doctor, you can get many products over the counter at your local pharmacy or grocery store, including the nicotine patch, nicotine lozenges, and nicotine gum. Resources for Quitting Smoking: <https://www.[place].gov/documents/[facility]/Quit_Tobacco_Resources_for_patients_313 480_7.pdf> Supplementation: Take recommended dosages of Vitamin D and Calcium to help fortify your bones and help them to heal. See your health maintenance packet for dosages and recommended levels. DVT/VTE prophylaxis: You will be given compression stockings from the hospital. Wear these daily for the first two weeks after surgery. You may take them off at night. You may be prescribed a medication to help thin your blood. Take this as directed. If you are not prescribed this medication, early and frequent ambulation has been shown to be the best prophylaxis to deep vein thrombosis and sequelae related to this event. Assessment: L4-L5 spinal listhesis; low back pain; bilateral lower extremity radiculopathy Procedures: L4-L5 MIS PLIF Patient Condition at Discharge: Good Plan - Discharge Summary Discharge Rx Participant: No New Discharge Prescriptions: New cefaDROXiL [Duricef] 500 mg PO Q12HR 5 Days #10 cap oxyCODONE-APAP 10-325MG [Percocet 10-325 mg] 1 tab PO Q4HR PRN #36 tab PRN Reason: Pain Sennosides/Docusate Sodium [Senna Plus 8.6-50 mg Softgel] 1 each PO DAILY #20 capsule Cyclobenzaprine [Flexeril] 10 mg PO TID #21 tab Gabapentin 300 mg PO TID #30 cap No Action Ibuprofen [Motrin] 800 mg PO Q8H PRN PRN Reason: Pain Cyclobenzaprine [Flexeril] 10 mg PO DAILY PRN PRN Reason: Pain oxyCODONE-APAP 10-325MG [Percocet 10-325 mg] 1 tab PO DIRECTED PRN PRN Reason: Pain Discharge Medication List Ibuprofen [Motrin] 800 mg PO Q8H PRN 02/07/23 [History] Cyclobenzaprine [Flexeril] 10 mg PO DAILY PRN 02/18/23 [History] oxyCODONE-APAP 10-325MG [Percocet 10-325 mg] 1 tab PO DIRECTED PRN 07/18/23 [History] Cyclobenzaprine [Flexeril] 10 mg PO TID #21 tab 07/26/23 [Rx] Gabapentin 300 mg PO TID #30 cap 07/26/23 [Rx] Sennosides/Docusate Sodium [Senna Plus 8.6-50 mg Softgel] 1 each PO DAILY #20 capsule 07/26/23 [Rx] cefaDROXiL [Duricef] 500 mg PO Q12HR 5 Days #10 cap 07/26/23 [Rx] oxyCODONE-APAP 10-325MG [Percocet 10-325 mg] 1 tab PO Q4HR PRN #36 tab 07/26/23 [Rx] Follow up Appointment(s)/Referral(s): Ermias Yang DO [Doctor of Osteopathic Medicine] - 2 Weeks Activity/Diet/Wound Care/Special Instructions: Spine Discharge and Recovery Instructions Date of Surgery: 07/25/2023 Keep incision clean, dry, intact. May remove dressings beginning 07/30/2023. Okay to shower directly over incision was dressing is removed. Do not soak incision Diagnosis: Low back pain and bilateral lower extremity radiculopathy; L4-L5 spondylolisthesis Procedure: L4-L5 MIS PLIF Medications: See medication list All medication refills should be obtained through your primary care doctor or your clinic spine surgeon. Please discuss prescription refills at your follow up appointment. Do not call the hospital for medication refills. Dressing: Leave your dressing in place for a total of 5 days post operatively. Then you may remove your dressing and leave open to air. Keep the area clean and if not able to keep area clean, then cover with sterile gauze and tape. Showering: You may shower 3 days after your procedure allowing soap and water to run over incision. Do not scrub. Do not soak. Blot dry. Follow up: Please confirm a follow up appointment with your surgeon 3 weeks post operatively. Please make an appointment to follow up with your PCP in 1-2 weeks after surgery for evaluation 3 phase, 3-week plan POST OP WEEKS 1-3 1. Lifting/carrying/pushing/pulling limited to less than 5 pounds. 2. Do not sit for longer than 15 minutes at one time. Get up and walk around. Prolonged sitting is NOT advised. If you lay down, see if you can tolerate laying down on you front (belly side) 3. Walk for periods of 15 minutes = 1 mile but no longer; do it multiple times times each day. 4. Ice your low back after activity. POST OP WEEKS 3-6 1. Lifting limited to less than 20 pounds. 2. Do not sit for longer than 30 minutes at a time. Frequently change positions. Use a sit-to stand workstation or take frequent breaks from sitting if you have returned to work. 3. Walk for 30 minutes each day. If possible, do these three or more times a day POST OP WEEKS 6+ At your 6-week appointment we will give you a physical therapy referral to focus on a core stabilization and strengthening program. You should also work on leg & buttock strengthening, hamstring & quadriceps stretching, and continue a low impact aerobic activity program such as swimming, walking, or riding a stationary bicycle. During the initial 6 weeks after your surgery, you are at the highest risk of re-injuring your spine. You should generally avoid BLTs (bending, lifting and twisting combination motions) and follow the above guidelines to reduce the ch ance of reinjury. You can anticipate post op appointments in our office at approximately 3 weeks and 6 weeks after your surgery. INCISION CARE: If your incision is not draining you do NOT need to cover it with a dressing. Keep your incision clean, dry and intact. In most cases, we apply skin glue, nathalia or sutures to the incision at the time of surgery. This will be like a crust or have the appearance of a scab and will fall off in time on its own. The stitches or nathalia need to be removed at 3 weeks post op appointment. You may begin to shower 3 days after surgery (this allows the glue to leal well). However, please avoid scrubbing the incision site or peeling off any of the skin glue. This will ensure optimal healing of your incision. Also, during this time avoid soaking the incision area in water - this includes swimming pools, hot tubs or baths. No ointments, lotions or oils on the incision until your surgeon allows. Leave nathalia, sutures or glue in place. Neurological dysfunction that comes on suddenly can also be a sign of a stroke. Below some common symptoms of a stroke are listed: B - balance difficulty such as sudden onset walking or leaning to one side - NEW E - eye problem such as sudden double vision or trouble seeing on one side - NEW F - Facial weakness or numbness on one side - NEW A - Arm or leg weakness or numbness on one side - NEW S - Slurred speech or difficulty with word finding - NEW T - Time is BRAIN! Call 911 as soon as you recognize these symptoms Diet: Consume a regular diet rich in vegetables and lean protein such as chicken or fish. You should consume in a ratio of approximately 20% fats|40% carbohydrates|40%protein. Vegetables, sweet potatoes, brown rice or quinoa are examples of good carbohydrates. Chips, white bread, cookies and sweets/sugar are examples of bad carbohydrates. Limit your bad carbs, go wild with good carbs. "Life's Simple 7" Guidelines as per [place] [employer] These will help you reclaim your life after surgery and shear grinder operator helper in your recovery, keeping in mind your restrictions. (1) Get Active. Physical activity can help people lose weight, control high blood pressure and cholesterol, feel emotionally better, and sleep better. (2) Control Cholesterol. Avoid a diet high in saturated fat, trans fat, & cholesterol. Limit whole milk & cream, ice cream, butter, egg yolks, processed meats (like sausage and hot dogs), and fatty meats. Choose healthy foods that are low in saturated fat, trans fat and cholesterol which include: Fruits and vegetables, fiber rich grain products (like whole grain pasta and brown rice), lean meat such as chicken, fish, nuts, seeds, and legumes. (3) Eat Better. Eat small portions. Shop at the grocery with a list and do not stray from it. Tips for a healthy diet include: Limit sodium intake to less than 1500mg daily, avoid prepackaged, processed, and fast foods, choose a diet rich in fruits, vegetables, and whole grain, high fiber foods, and limit saturated & cholesterol in your diet. (4) Manage Blood Pressure. If you have high blood pressure, you should have a cuff at home so that you can check your blood pressure regularly. Be sure you have a good cuff. An arm one is generally better than a wrist one. Bring the cuff to a doctor's appointment to validate that the measurements that your cuff are taking are accurate. Take your blood pressure twice daily when you are sitting down and relaxing. Record the numbers in a log and bring this log with you to your doctors' appointments. (5) Lose Weight if your BMI is above 25. A healthy BMI is between 19-25. To calculate Your BMI, you may use a Standard BMI Calculator on the NIH BMI website: <www.nhlbi.nih.gov/guidelines/obesity/BMI/bmicalc.htm>. Weigh oneself daily. If you are overweight, set a goal to lose weight. A pound a week loss if needed is a good target. (6) Reduce Blood Sugar. Limit foods and liquids with "added sugars." (Added sugars include sucrose, fructose, glucose, maltose, dextrose, high fructose corn syrup, corn syrup, concentrated fruit juice and honey). (7) Stop Smoking. If you smoke, quitting smoking is one of the best things that you can do for your health. Smoking increases your risk of heart attack, stroke, and peripheral vascular disease, which is a build-up of plaque in your arteries. Please discard all the cigarettes and lighters in your house. Have a plan for what you will do when you have the urge to smoke. Direct and second- hand smoke shortens your life as well as the lives of your family, friends and others around you. For your health and the health of those around you, please consider quitting! Proper Bending Body Mechanics: Maintain a wide stance with one foot slightly in front of the other. Keep your back straight. Bend utilizing the strength in your hips and knees. Do not bend at the waist. Maintain the lifted object at your waist-level close to your body. Avoid lifting weight that causes immediately pain or pain anywhere in the body afterwards. Smoking/Nicotine If there was ever one thing that you could do to increase your overall health, decrease your risk of cardiovascular problems by about 39% the second you make the choice, it is to STOP SMOKING. Your body's most instant gratification is the second you stop smoking. We have all heard the studies, read the articles but it is true, smoking is extremely bad for your overall health, and moreover it is detrimental to your bone health. Nicotine, IN ANY FORM, kills bone cells, prevents your body from healing fractures, and significantly prolongs healing after surgery. In spine surgery specifically, it increases your risk of not healing your bones to create a fusion and increases your risk of having a revision surgery due to this up to 60%. I know it is hard. I know it feels impossible. But there are ways. Take control of your life. We are here to help you through it. And when you are ready, ask us and we can direct you to help if you desire. Use the START Plan to Quit Smoking (please visit the Helpguide.org website listed below for more information): S = Set a quit date. Choose a date within the next 2 weeks, so you have enough time to prepare without losing your motivation to quit. If you mainly smoke at work, quit on the weekend, so you have a few days to adjust to the change. T = Tell family, friends, and co-workers that you plan to quit. Let your friends and family in on your plan to quit smoking and tell them you need their support and encouragement to stop. Look for a quit wilbert who wants to stop smoking as well. You can help each other get through the rough times. A = Anticipate and plan for the challenges you'll face while quitting. Most people who begin smoking again do so within the first 3 months. You can help yourself make it through by preparing ahead for common challenges, such as nicotine withdrawal and cigarette cravings. R = Remove cigarettes and other tobacco products from your home, car, and work. Throw away all your cigarettes (no emergency pack!), lighters, ashtrays, and matches. Wash your clothes and freshen up anything that smells like smoke. Shampoo your car, clean your drapes and carpet, and steam your furniture. T = Talk to your doctor about getting help to quit. Your doctor can prescribe medication to help with withdrawal and suggest other alternatives. If you can't see a doctor, you can get many products over the counter at your local pharmacy or grocery store, including the nicotine patch, nicotine lozenges, and nicotine gum. Resources for Quitting Smoking: <https://www.[place].gov/documents/[facility]/Quit_Tobacco_Resources_for_patients_313 480_7.pdf> Supplementation: Take recommended dosages of Vitamin D and Calcium to help fortify your bones and help them to heal. See your health maintenance packet for dosages and recommended levels. DVT/VTE prophylaxis: You will be given compression stockings from the hospital. Wear these daily for the first two weeks after surgery. You may take them off at night. You may be prescribed a medication to help thin your blood. Take this as directed. If you are not prescribed this medication, early and frequent ambulation has been shown to be the best prophylaxis to deep vein thrombosis and sequelae related to this event. Discharge Disposition: HOME SELF-CARE
--- NOTE | 2023-07-26 13:57 | P.PN ---
Subjective Progress Note Date: 07/26/23 Principal diagnosis: L4-L5 spondylolisthesis; low back pain; lower extremity radiculopathy Patient was seen at bedside in Semirecumbent position with Mota in place. Dressings are in place on low back. Patient says he is looking forward to working with therapy later this morning. Patient is hoping to go home today. Patient says his will be helping a lot at home. Patient says he does need a walker for home. He says there is moderate amount of low back pain at this time. He denies any radiation of pain. Patient denies chest pain, fever, shortness of breath, nausea, vomiting, change in vision, loss of bowel/bladder control Objective - Vital Signs Vital signs: Vital Signs Temp 98.4 F 07/26/23 07:00 Pulse 93 07/26/23 07:00 Resp 18 07/26/23 07:00 BP 121/80 07/26/23 07:00 Pulse Ox 95 07/26/23 07:00 FiO2 Intake & Output 07/25/23 07/26/23 07/26/23 18:59 06:59 18:59 Intake Total 2500 0 Output Total 964 993 7524 Balance 2200 -700 -1200 Weight 120.5 kg 120.5 kg Intake: IV 2500 Oral 0 Output: Urine 382 301 6007 Uretheral (Mota) 1200 Estimated Blood Loss 50 Other: Voiding Method Indwelling Catheter Indwelling Catheter - Exam Dressings are clean, dry, intact. Grady are well and intact. Negative for any active drainage. Sensation is equal, symmetric combine intact throughout the upper and lower extremities. There is some moderate tenderness to patient diffusely throughout the lumbar spine your incisions. Nontender to palpation throughout rest of exam. Patient has full range of motion throughout bilateral upper extremities on exam. There is limited range of motion in the bilateral hips and flexion/extension secondary to referred pain to the low back. Full range of motion throughout knees in flexion/extension and ankles and dorsiflexion/plantar flexion bilaterally. 4/5 in all major motor groups in bilateral lower extremities. 4+/5 in all major motor groups in bilateral upper extremities. Radial pulse intact, 2+ bilaterally. Cap refill under 3 seconds in digits upper extremity is. Negative Homans bilaterally. Negative Anna Marie. Negative clonus bilaterally. - Labs CBC & Chem 7: 07/26/23 05:47 07/26/23 05:47 Labs: Abnormal Lab Results - Last 24 Hours (Table) 07/26/23 Range/Units 05:47 Sodium 135 L (137-145) mmol/L Glucose 153 H (74-99) mg/dL Assessment and Plan Assessment: 1. L4-L5 spondylolisthesis; low back pain; lower extremity radiculopathy - Postoperative day #1 status post L4-L5 MIS PLIF Plan: 1. L4-L5 spondylolisthesis; low back pain; lower extremity radiculopathy - surgery performed yesterday, , 07/25/2023 L4-L5 MIS PLIF. Patient stable at bedside this morning. Plan discharge home today with home care. Prescription for walker signed. Pending completion with PT/OT discharge home. 2. Appreciate medical management 3. Pain management - [place]; oxycodone 4. GI prophylaxis - senna 5. DVT prophylaxis - mechanical 6. PT/OT - weightbearing as tolerated with walker as needed 7. Encourage incentive spirometer use 8. Discharge planning - home today
[2023-07-26] MEDS: oxyCODONE-APAP 10-325MG 1 EACH TAB PO PRN (14:09)
== END 2023-07-26 15:56 | disposition home or self-care (01) ==
LOC: OR 11:59 → 4SSUR 16:40 → OR 07-26 15:56
PROVIDERS: ATTEND Orthopaedic Surgery
DX: M48.061 Spinal stenosis, lumbar region without neurogenic claudication (principal); M51.36 Other intervertebral disc degeneration, lumbar region; M51.26 Other intervertebral disc displacement, lumbar region; M47.816 Spondylosis without myelopathy or radiculopathy, lumbar region; M47.27 Other spondylosis with radiculopathy, lumbosacral region
CPT/HCPCS: 97161; 80048; 85025; 72100; 72131; 22633; 20936; 22853; 22859; 20930; C1713; C1734; J1100; J0690 ×2; J2405; J1170 ×2; J0665

== ENCOUNTER → 2024-10-26 | Outpatient (CLI) | payer OTHER ==
--- NOTE | 2024-10-31 22:05 | MR ---
EXAMINATION TYPE: MR knee RT wo con DATE OF EXAM: 10/26/2024 COMPARISON: Outside right knee x-ray September 17, 2024 HISTORY: RT knee posterior pain TECHNIQUE: Multiplanar, multisequence images of the knee is performed without IV contrast. FINDINGS: MEDIAL MENISCUS: Horizontal increased signal extends through anterior and posterior horns. This does not definitively extend to articular surface. LATERAL MENISCUS: Anterior and posterior horns are intact without tear. CRUCIATE LIGAMENTS: The anterior and posterior cruciate ligaments are intact. Increased signal in the anterior cruciate ligament is seen. COLLATERAL LIGAMENTS: The medial collateral ligament and lateral collateral ligament complex are inta ct and unremarkable. EXTENSOR MECHANISM: Increased signal in the distal quadriceps tendon. EFFUSION: Small to moderate size suprapatellar joint effusion. POPLITEAL CYST: No popliteal/bergeron cyst. TRICOMPARTMENT SPACES: Mild to moderate tricompartment joint space loss and spurring. CARTILAGE: Some chondromalacia patella with some areas of cartilaginous loss in the posterior patella r pole. Some cartilaginous loss medial tibiofemoral compartment. BONE MARROW SIGNAL: No focal abnormal marrow signal is appreciated. OTHER: No additional significant abnormality is appreciated. IMPRESSION: 1. Intrasubstance tear through the anterior and posterior horns of the medial meniscus. 2. Myxoid degeneration ACL. 3. Mild to moderate tricompartment degenerative changes are present as detailed above. 4. Small to moderate-sized suprapatellar joint effusion. [facility], , 10/31/2024 10:03 PM
== END | disposition home or self-care (01) ==
LOC: RADMRIMAIN 12:58
PROVIDERS: ATTEND Orthopaedic Surgery
DX: S83.241A Other tear of medial meniscus, current injury, right knee, initial encounter (principal); M17.11 Unilateral primary osteoarthritis, right knee; X58.XXXA Exposure to other specified factors, initial encounter